=== PATIENT | female | born 1960 | race Caucasian/White ===

== ENCOUNTER 2023-12-08 15:21 | Inpatient (IN) | payer MEDICARE, SELFPAY ==
[2023-12-08] VITALS (10 sets, daily range): BP systolic 105–167; BP diastolic 71–105; BMI 27.2
--- NOTE | 2023-12-08 15:48 | HPS.HSE ---
Family Physician
-
Family Physician: NO INTERVIEW UNKNOWN
Chief Complaint
-
-
History of Present Illness
62-year-old right hand dominant female transferred from [facility] to [facility] on 12/08/2023 for consideration of CABG surgery due to multivessel coronary disease. Patient initially presented to [place] emergency room
with complaints of midsternal chest discomfort with radiation to her back that occurred while sitting. Patient had associated nausea and diaphoresis. 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 These episodes have always resolved with rest. While in the emergency room, patient experienced 10 out of 10 midsternal chest pain and repeat ECG reported new T wave inversions inferiorly. Initial troponin was
negative and subsequently elevated to 82 and ng/L, consistent with NSTEMI. Patient was treated with IV heparin, nitroglycerin, and aspirin. A transthoracic echocardiogram reported an EF of 55% with no significant valvular pathology. There was
mild hypokinesis of the inferior septum, basal, and mid inferior boyle. Patient underwent left heart catheterization today which reported significant LAD disease. Patient currently pain-free on low-dose IV nitroglycerin infusion.
[facility] 12/08/23 (R radial by Dr. Alejandro Ritter):
Left main: Normal
Anterior descending colon 90% ostial LAD stenosis
Left circumflex: 30-40% proximal OM1. Distal left PDA patent
Right coronary artery: Small nondominant vessel with 50-60% mid stenosis
Medical History
Past Medical History
Past Medical History: Reports Cancer (Non-small cell lung cancer with left upper lobe (2008) and right lobe wedge resection (2016)), GERD, HTN, Psychiatric (anxiety) and Other (migraine; recovering alcoholic (last drink was 18 months ago))
Past Surgical History: Reports None and Other (KETURAH m& R wedge resection)
Social History
Tobacco: Former Smoker (Quit 2006)
Alcohol: Chronic Alcoholic (Sober x 18 months)
Drug: None
Personal:
Living: With Family
Employment: Employed (Works at [employer])
Family History
Family History: Not pertinent
Allergies / Home Medications
Allergies reflects when Allergies were last updated in [facility].
Home Medications with original date entered in [facility]
Allergy/Medication List:
Allergies
Allergy/AdvReac Type Severity Reaction Status Date / Time
acetaminophen [From Tylenol] Allergy hives Verified 12/08/23 15:45
hydromorphone [From Dilaudid] Allergy Hives Verified 12/08/23 15:45
Penicillins Allergy Unknown Verified 12/08/23 15:45
Patient recounts was told allergic to penicillin as a child. Reaction acetaminophen and Dilaudid both cause hives
Home Medications
�Medication �Instructions �Recorded
amlodipine 2.5 mg tablet 2.5 mg PO DAILY 12/08/23
fluoxetine 40 mg capsule (Prozac) 40 mg PO DAILY 12/08/23
pantoprazole 40 mg tablet,delayed 40 mg PO DAILY 12/08/23
release (Protonix)
zolpidem 6.25 mg tablet,extended 6.25 mg PO HS PRN insomnia 12/08/23
release,multiphase (Ambien CR)
Review of Systems
-
History Source: Patient
A 12 point ROS was completed and negative except as noted: Yes
Constitutional: Reports No Symptoms
EENT: Reports No Symptoms
Respiratory: Reports No Symptoms
Cardiac: Reports See HPI
Abdomen/GI: Reports Other (Reflux)
: Reports No Symptoms
Musculoskeletal: Reports No Symptoms
Skin: Reports No Symptoms
Neurological: Reports No Symptoms
Endocrine: Reports No Symptoms
Hematologic/Lymphatic: Reports No Symptoms
Psych: Reports Anxiety
Physical Exam
Physical Exam
General: Well Developed, Well Nourished, No Apparent Distress and Comfortable
HEENT: NormoCephalic, Anicteric, Moist mucous membranes, PERRLA, No Ptosis, Nose Appears Normal, Ears Appear Normal and Neck Nontender
Respiratory: Clear
Cardiac: S1/S2 and Regular Rhythm
Breast: Deferred by me
GI: Soft, Non Tender and Non Distended
Rectal: Deferred by Provider
Genito-urinary: Deferred by me
Musculoskeletal: No Clubbing, No Cyanosis and No Edema
Skin: Warm and Dry
Neuro: AO x 3, No Motor Deficits and Nonfocal/grossly intact
Hematologic/Lymphatic: No Lymphadenopathy
Psych: Calm and Intact Judgment/Insight
Laboratory Results
-
Labs from [facility] (12/07):
Creat 0.83
Na+ 139
K+ 3.8
Data Reviewed
-
Diagnostic Radiology: Report Reviewed by me and Discussed with Physician
CT Scan: Report Reviewed by me and Discussed with Physician
Ultrasound: Report Reviewed by me and Discussed with Physician
Lab Data: Labs Reviewed by me and Discussed with Physician
Old Records: Requested (from Dr. Tinajero ([facility]))
Impression/Plan
-
IMPRESSION:
NSTEMI/high-grade LAD coronary disease
PLAN:
-DR Ren reviewed imaging and spoke with patient/ regarding surgical procedure, risk/benefit ratio, and expected recovery trajectory
-consent signed
-medical release signed to obtain records from Dr. Tinajero 9[facility])
-Routine blood work, type and screen, carotid ultrasound, chest x-ray and noncontrast CT of the chest ordered
-Cardiology anesthesiology consulted
-Scheduled for CABG on 12/[address] Ren
--- NOTE | 2023-12-08 16:05 | PTCARENOTE ---
Pt arrived to CVICU from [place]. Pt currently chest pain free on Nitro gtt. Pt remains sinus stephan HR 50's-60's. BP 141/97 MAP 110. Pulse oximetry 99% on room air. Pt currently on bedrest. Purwick in place. Right radial band in place, pulses
palpable, neurovascular assessment WNL.
--- NOTE | 2023-12-08 16:24 | CM ---
Reviewed chart. Met with Ms. Brooks and her brother to review discharge plan. He states prior to admission she resides with her 29 year old daughter in a three story home with two steps to enter. She states she has a full flight of steps to get
to bedroom/full bathroom. She states she has a powder room on the first floor. She states prior to admission she was independent with ambulation and adls. She states she does not have any DME in the home. She states she recently signed up for
Medicare and did not sign up for her Medicare prescription plan yet. She states he daughter works outside the home. Medical work-up in progress. The discharge plan is to return home with her daughter and a home visit by the Cardiothoracic
Transitional Care Nurse when medically stable.
We reviewed pre-op and post-op routines. We briefly reviewed the shower instructions. We reviewed restrictions including sternal precautions and driving restrictions. Also discussed a home visit by the Cardiothoracic Transitional Care Nurse. She
is agreeable to a home visit. Gave her the Cardiothoracic Surgery Educational Booklet. The plan is for CABG on 12/09/23.
--- NOTE | 2023-12-08 16:43 | CON.CAR ---
Consultation
Consultation Request
Date/Time Consultation Requested: 12/08/23
Date/Time Consultation Performed: 12/08/23
Requesting Provider: Dr. Ren
Performing Provider: Dr. Palma
Reason for Consultation: Chest pain, CAD
Medical History
-
History of Present Illness:
Patient came to from [facility] today with ACS and CAD, cardiology has been consulted. 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
She had chest pain and left hand tingling that resolved with rest. She did not try to complete that walk again and overall she had never had an episode like that before. She had an episode of chest pain walking up the stairs today and was seen at
[facility] and admitted with ACS. Patient had cardiac cath 12/08/23 that showed ostial LAD disease. She had chest pain that improved with NTG SL and Heparin gtt. She was transferred to for CABG evaluation. She has been pain free since arrival to . Her
mother had an OR at age 76, but suspects she had MIs prior to that as well. She is one of four children and two of her brother have CAD, one had CABG in his 50s and the other had PCI a few weeks ago and is in his 60s. She used to smoke 1.5 ppd, but
quit in 2006. She also used to drink 3-5 drinks a day and quit cold turkey 17 months ago which she says caused her to gain weight and her cholesterol went up. She has a h/o HTN, but reports that her BP was elevated at PCP's office once or twice so
they started amlodipine. She does not monitor her BP at home.
PMH:
CAD with ostial LAD lesion by cath at [facility] 12/08/23
Transferred from [facility] to for CT surgery evaluation 12/08/23
HTN
h/o lung cancer
initially diagnosed as a left sided lung mass treated with resection at [facility] 2007
recurrent lung cancer, primary lesion and not thought to be a metastatic lesion, treated with resection at [facility] 2015
Former smoker
Former ETOH use disorder
Past Medical History
Past Medical History: Other (in HPI)
Past Surgical History: Other (lung cancer resection left sided 208, right sided 216)
Social History
Tobacco: Former Smoker (smoked 1.5 ppd, quit 2006)
Alcohol: Former (used to drink 3-5 a day and quit 17 months ago, detoxed on her own at home)
Drug: None
Living: Alone
Family History
Family History: CAD (mother OR at 76, one brother with CABG in his 50s and another brother with PCI earlier this month)
Allergies / Home Medications
Allergy/AdvReac Type Severity Reaction Status Date / Time
acetaminophen [From Tylenol] Allergy hives Verified 12/08/23 15:45
hydromorphone [From Dilaudid] Allergy Hives Verified 12/08/23 15:45
Penicillins Allergy Unknown Verified 12/08/23 15:45
Review of Systems
-
History Source: Patient
All other systems: Negative unless noted
Physical Exam
Vital Signs
Pulse Resp BP Pulse Ox
60 13 141/97 99
12/08/23 16:15 12/08/23 16:15 12/08/23 16:00 12/08/23 16:15
GEN: NAD. AAOx3
HEENT: EOMI, MMM
LUNGS: CTA B/L, no wheezes or rales
CV: Reg, S1/S2, no murmur
ABD: soft, BS+, NT, ND
EXT: No clubbing, cyanosis, lesions or edema B/L. +2 B/L PT pulses
NEURO: Gross non-focal
SKIN: Warm, dry and pink. No rash
Lab Results
Labs ordered and pending
Impression / Plan
-
PCP: unknown
Cardiology: cath by ATC at [facility]
Impression:
ACS
CAD with ostial LAD lesion by cath at [facility] 12/08/23
Transferred from [facility] to for CT surgery evaluation 12/08/23
HTN
h/o lung cancer
initially diagnosed as a left sided lung mass treated with resection at [facility] 2007
recurrent lung cancer, primary lesion and not thought to be a metastatic lesion, treated with resection at [facility] 2015
Former smoker
Former ETOH use disorder
Echo 12/08/23: Study pending
Plan:
-Patient came to from [facility] today with ACS and CAD, cardiology has been consulted. 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 She had chest pain and left hand tingling that resolved with rest. She did not try to complete that walk again and overall she had never had an episode like that before. She had an episode of chest pain walking up the stairs today and
was seen at [facility] and admitted with ACS. Patient had cardiac cath 12/08/23 that showed ostial LAD disease. She had chest pain that improved with NTG SL and Heparin gtt. She was transferred to for CABG evaluation. She has been pain free since arrival
to . Her mother had an OR at age 76, but suspects she had MIs prior to that as well. She is one of four children and two of her brother have CAD, one had CABG in his 50s and the other had PCI a few weeks ago and is in his 60s. She used to smoke
1.5 ppd, but quit in 2006. She also used to drink 3-5 drinks a day and quit cold turkey 17 months ago which she says caused her to gain weight and her cholesterol went up. She has a h/o HTN, but reports that her BP was elevated at PCP's office once
or twice so they started amlodipine. She does not monitor her BP at home.
-Labs pending
-ECG reviewed by me with sinus bradycardia and no ST changes.
-Echo pending
-CT surgery team is evaluating patient and plan is for CABG in AM. Talked with patient and her brother in the room. Patient is resistant to taking daily meds. She is going to start working on wrapping her head around taking aspirin, statin, BB etc.
-She has not had a drink of ETOH in 17 months. She quit smoking in 2006.
[2023-12-08 16:55] LABS: % Basophils 0.5 % (0-2); % Eosinophils 0.6 % (0-6); % Immature Granulocytes 0.3 % (0-0.5); % Lymphocytes 19.3 % (20.5-51.1); % Neutrophils 74.3 % (42.2-75.2); Absolute Basophils 0.1 10^3/uL (0-0.2); Absolute Eosinophils 0.1 10^3/uL (0-0.7); Absolute Lymphocytes 1.9 10^3/uL (1.2-3.4); Absolute Monocytes 0.5 10^3/uL (0.1-0.6); Absolute Neutrophils 7.2 10^3/uL (1.4-6.5); Hematocrit 39.2 % (37.0-47.0); Hemoglobin 13.2 g/dL (12.0-16.0); Mean Corp Hgb Conc. 33.7 g/dL (33.0-37.0); Mean Corpuscular Volume 83.2 fL (81.0-99.0); Mean Platelet Volume 8.8 fL (7.4-10.4); Nucleated Red Blood Cells % 0 %; Platelet Count 322 10^3/uL (130-400); Red Blood Cell Count 4.71 10^6/uL (4.20-5.40); White Blood Cell Count 9.7 10^3/uL (4.8-10.8)
[2023-12-08 17:05] LABS: INR 1.12; PT 14.3 Sec (11.4-14.6)
[2023-12-08 17:07] LABS: APTT 72.8 Sec (23.4-35.0)
[2023-12-08 17:13] LABS: Urine Albumin Negative (Neg - Trace); Urine Bilirubin Negative (Negative); Urine Character Clear (Clear); Urine Color Yellow; Urine Glucose Negative (Negative); Urine Ketone Trace (Negative); Urine Leukocyte Trace (Negative); Urine Nitrite Negative (Negative); Urine Occult Blood Negative (Negative); Urine Urobilinogen Negative (Neg - 1+)
[2023-12-08 17:19] LABS: ALT (SGPT) 16 U/L (0-35); AST (SGOT) 22 U/L (14-36); Albumin 3.5 g/dl (3.5-5.0); Alkaline Phosphatase 50 U/L (38-126); Blood Urea Nitrogen 14 mg/dl (7-17); Calcium 8.7 mg/dl (8.4-10.2); Carbon Dioxide 22 mmol/L (22-30); Chloride 110 mmol/L (98-107); Estimated Creatinine Clearance 85 ml/min; Glucose 104 mg/dl (70-99); Magnesium 1.7 mg/dl (1.6-2.3); Phosphorus 3.7 mg/dl (2.5-4.5); Potassium 4.2 mmol/L (3.5-5.1); Sodium 137 mmol/L (135-145); Total Bilirubin 0.8 mg/dl (0.2-1.3); eGFR > 60.00
[2023-12-08 17:33] LABS: Urine Bacteria Moderate (Negative); Urine Red Blood Cell 0-2 /HPF (0-2); Urine Squamous Cell >30 /LPF (Few)
--- NOTE | 2023-12-08 18:12 | W.PN.UPDATE ---
Update Note
Progress Note Update
pt seen and examined
cath reviewed in detail, discussed with Dr Ritter
comorbidity of significance is prior smoking with copd and lung ca
left thorocotomy and left upper lobe resection first
right wedge resection more recently
Cath with ostial lad and flow at risk
I agree cabg to lad with leroy or julio césar is good option
Risks, complications benefits and alternatives reviewed
Plan cabg in am
check ct scan for anatomy given prior thorocotomies x 2
--- NOTE | 2023-12-08 18:23 | RESPNOTE ---
i attempted bedside spirometry at 1630, patient had to go to ultrasound emergently , i attempted to do the spirometry again at 1814 when patient returned from ultrasound , the patient was having severe chest pain at the time and could not perform
spirometry, i notified jolly reynolds nurse practitioner and told her the situation, she said we could attempt again on rubber goods tester water if she is able to do it
[2023-12-08] MEDS: LIPITOR 80 MG PO (18:36)
--- NOTE | 2023-12-08 18:45 | PTCARENOTE ---
Preop testing completed. Back to room, pt with increased chest pain. Nitro titrated up to 10mcg/min. Pt now chest pain free. Right radial band weaning off. Pulses palpable.
[2023-12-08] MEDS: HEPARIN 25000 UNITS/250 ML IV (20:18)
--- NOTE | 2023-12-08 20:45 | PTCARENOTE ---
Received patient from ron GALAVIZ. Walking rounds completed. Pt AAOx3. Pt SR on the tele monitor. HR 60s. BP 118/78. Palpable pulses throughout. No edema. Pt on RA. POX 92-96%. Lung sounds clear. Deep breathing encouraged. Abdomen soft/nontender.
+BS. Pt instructed to ring if she needs to void. Right radial cath site clean/dry/intact and QUALITY CONTROL ASSISTANT. TR band removed. Left PIVx2 CDI. Nitro and heparin infusing as ordered. Pt states she is currently CP free. Pt updated on plan of care for the night.
Questions encouraged and answered. Call garza within reach.
[2023-12-09] VITALS (23 sets, daily range): BP systolic 106–140; BP diastolic 55–79; BMI 27.2
--- NOTE | 2023-12-09 00:06 | PTCARENOTE ---
Previous assessment unchanged. Pt clipped and washed with CHG soap / Linens and gown changed ~2100. Pt SR to sinus stephan on the tele monitor. HR 50-60s. BP stable. Pt on 2 L NC. POX 96%. Right radial cath site intact and LEIGHA. Nitro and heparin
infusing. No c/o CP. Call garza within reach.
[2023-12-09 03:02] LABS: APTT 55.4 Sec (23.4-35.0)
--- NOTE | 2023-12-09 05:32 | PTCARENOTE ---
No acute changes in assessment. Pt SR to sinus stephan on the monitor. HR 50-60s. Pt currently CP free with nitro infusing as ordered. Pt on RA. POX 95%. Pt given second CHG soap bath. VS and weight obtained. EKG completed. Heparin infusing per
protocol. Call garza within reach.
[2023-12-09] MEDS: PROTONIX 40 MG PO (06:06)
[2023-12-09] MEDS: MAGNESIUM OXIDE 500 MG PO (06:06)
[2023-12-09] MEDS: BACTROBAN 2% OINTMENT 1 APPLIC NASAL ×2 (06:06→20:15)
[2023-12-09] MEDS: LOPRESSOR 12.5 MG PO (06:06)
--- NOTE | 2023-12-09 06:34 | W.CVOR.SURPR ---
CVOR Surgeon Immed Pre Op
-
I have examined this patient prior to performance of the scheduled procedure.
The patient's condition is unchanged from the time of the dictated/written History and
Physical and the patient is able to undergo the scheduled procedure.
[2023-12-09 07:33] LABS: ACT+ - POC 90 Seconds (82-134)
[2023-12-09 07:42] LABS: Urine Albumin Negative (Neg - Trace); Urine Bilirubin Negative (Negative); Urine Character Clear (Clear); Urine Color Yellow; Urine Glucose Negative (Negative); Urine Ketone Negative (Negative); Urine Leukocyte Negative (Negative); Urine Nitrite Negative (Negative); Urine Occult Blood Negative (Negative); Urine Urobilinogen Negative (Neg - 1+)
--- NOTE | 2023-12-09 08:14 | CM ---
Reviewed chart. Ms. Brooks is in the operating room today. Prior to admission she resides with her daughter in a two story home with two steps to enter. She has a full flight of steps to get to bedroom/full bathroom. She has a powder room on the
first floor. Prior to admission she was independent with ambulation and adls. She does not have any DME in the home. Medical work-up in progress. The discharge plan is to return home with her daughter and a home visit by the Cardiothoracic
Transitional Care Nurse when medically stable.
[2023-12-09 08:22] LABS: B.E. - POC -3.1 mmol/L; Glucose - POC 119 mg/dl (65-99); HCO3 - POC 21 mmol/L (21-29); Hematocrit - POC 37 % PCV (37-47); Hemodilution- POC No; Hemoglobin Calculated - POC 12.6; Ionized Calcium - POC 1.18 mmol/L (1.12-1.27); O2 Saturation %Calculated-POC 98.7 5 (92-96); PCO2 - POC 35 mmHg (35-45); PO2 - POC 121 mmHg (80-100); POC Comment BASELINE; Potassium - POC 3.4 mmol/L (3.6-5.0); Sodium - POC 142 mmol/L (135-145); pH - POC 7.39 (7.35-7.45)
[2023-12-09 08:35] LABS: ACT+ - POC 735 Seconds (82-134)
[2023-12-09 09:02] LABS: B.E. - POC -3.3 mmol/L; Glucose - POC 144 mg/dl (65-99); HCO3 - POC 23 mmol/L (21-29); Hematocrit - POC 38 % PCV (37-47); Hemodilution- POC No; Ionized Calcium - POC 1.16 mmol/L (1.12-1.27); O2 Saturation %Calculated-POC 95.1 5 (92-96); PCO2 - POC 42 mmHg (35-45); PO2 - POC 81 mmHg (80-100); Potassium - POC 3.4 mmol/L (3.6-5.0); Sodium - POC 140 mmol/L (135-145); pH - POC 7.33 (7.35-7.45)
[2023-12-09 09:04] LABS: ACT+ - POC 96 Seconds (82-134)
[2023-12-09 09:21] LABS: B.E. - POC -4.3 mmol/L; Glucose - POC 133 mg/dl (65-99); HCO3 - POC 20 mmol/L (21-29); Hematocrit - POC 34 % PCV (37-47); Hemodilution- POC No; Hemoglobin Calculated - POC 11.5; O2 Saturation %Calculated-POC 93.4 5 (92-96); PCO2 - POC 35 mmHg (35-45); PO2 - POC 70 mmHg (80-100); POC Comment POST; Potassium - POC 3.3 mmol/L (3.6-5.0); Sodium - POC 140 mmol/L (135-145); pH - POC 7.37 (7.35-7.45)
--- NOTE | 2023-12-09 09:38 | W.PN.CT.SURG ---
CT Surgery Operative Note
-
Pre-op Diagnosis: nstemi
critical lad cad
Post-op Diagnosis: Same
Procedure: Cabg x 1
Rizzo- lad
off pump
RSF
Primary Surgeon: Mikal
Assisting Surgeons: Aurelia
Specimen: None
Cultures: None
Complications / Blood Loss: None
Findings: Walt with preserved EF pre and post revasc
Good Rizzo
Good target
COPD
[2023-12-09 10:02] LABS: Glucose - Point of Care 145 mg/dl (70-99)
[2023-12-09 10:15] LABS: B.E. -3.8 mmol/L; HCO3 22.2 mmol/L (21-28); Ionized Calcium 1.07 mMOL/L (1.15-1.33); O2 Saturation % 98.4 % (94-98); PCO2 43 mmHg (32-35); PO2 86 mmHg (83-108); Potassium 3.7 mMOL/L (3.5-5.1); Sodium 135 mMOL/L (136-145); pH 7.32 (7.35-7.45)
--- NOTE | 2023-12-09 10:15 | PTCARENOTE ---
Pt received from CVOR at 0950; Sedated and intubated; NSR rhythm on monitor and VSS; Lungs diminished at bases; ETT size 8 and 22 at lip; Ventilator settings SIMV 500/12/5/5 FiO2 60%; CTx2 to -20 cm wall suction, no air leak, tidaling, or crepitus
noted; Hypoactive BS; Talbert catheter in place draining yellow urine; Surgical sites CDI; Palpable pulses throughout; no edema noted; Left A-line, RIJ Cordis/SLIC, and PIV X2 all lines zeroed and level; Levo, Precedex, and Insulin infusing see flow
sheet for details; See nursing documentation for further details.
[2023-12-09 10:30] LABS: Blood Urea Nitrogen 10 mg/dl (7-17); Estimated Creatinine Clearance 85 ml/min; Glucose 153 mg/dl (70-99); Magnesium 1.7 mg/dl (1.6-2.3)
[2023-12-09 10:34] LABS: INR 1.26; PT 15.6 Sec (11.4-14.6)
[2023-12-09 10:34] LABS: Hemoglobin 12.7 g/dL (12.0-16.0); Platelet Count 354 10^3/uL (130-400)
[2023-12-09] MEDS: NSS 500 IV ×2 (10:37→11:22)
[2023-12-09] MEDS: ANCEF 10 IV ×2 (10:38)
[2023-12-09] MEDS: CALCIUM CHLORIDE 10% SYRINGE 50 ML IV (10:39)
[2023-12-09] MEDS: CALCIUM CHLORIDE 10% SYRINGE 50 MG IV (10:39)
--- NOTE | 2023-12-09 10:50 | CON.INTV ---
Consultation
Consultation Request
Date/Time Consultation Requested: 12/09/2023 - 910
Date/Time Consultation Performed: 12/09/2023 - 1034
Requesting Provider: JOHN Dorsey
Performing Provider: Neo Fortune MD
Reason for Consultation: s/p CABG
Medical History
-
Chief Complaint: Chest pain
History of Present Illness:
62 female former tobacco smoker with a past medical history of NSCLC s/p KETURAH resection (2007) c/b recurrence with RLL wedge resection at [place], GERD, hypertension, alcoholism and history of migraines who presented on 12/08/2023 for CABG
evaluation catheter first presenting with SS�CP at [facility]. Over the last month patient been having worsening exertional chest pain. Symptoms resolved with rest. Patient went to [facility] ER due to 10 out of 10 substernal chest pain with T
wave inversions seen in the inferior leads on EKG. Troponins were initially negative and then daniel to 82. Patient was started on IV heparin for an NSTEMI and also given aspirin + nitroglycerin. Reportedly, transthoracic echo showed an EF of 55%
with no significant valvular pathology. There was mild hypokinesis in the inferior septum, basal and mid inferior boyle. Left heart catheterization showed significant LAD disease and she was transferred here to [facility] for evaluation for
CABG. Spirometry performed today for preop purposes showed a moderate obstructive lung defect with FEV1 1.71 L / 78% predicted. Today patient underwent CABG x 1, with no complications and transferred to the CVICU with left pleural chest
tube/mediastinal chest tube in place. Critical care services consulted for additional management/recommendations.
When I saw the patient she was already extubated, saturating 93% on 6 L/min nasal cannula. BP via left radial A-line was 124/65 (BP via NIBP 106/61), heart rate 56. She was on nitroglycerin drip at 5mcg/min and insulin drip at 2.3 units/hr.
patient has postoperative chest pain, but denies shortness of breath, headache, abdominal pain, fevers or chills. Daughters x 2 at bedside. I answered all of the patient's and the daughters' questions.
PMHx: Lung cancer s/p left upper lobe resection (2008)/RLL wedge resection (2016), GERD, hypertension, anxiety, history of migraines, alcoholism, former tobacco use disorder
PSHx: Lung resection of left upper lobe + right lower lobe
Past Medical History
Past Medical History: Other (Above as per HPI)
Past Surgical History: Other (Above as per HPI)
Social History
Tobacco: Former Smoker (Quit 2006, smoked 1.5PPD prior to that)
Alcohol: Chronic Alcoholic (Sober X 18 months)
Drug: None
Personal:
Living: With Family
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
Family History
Family History: CAD (2 brothers: 1 had a CABG in his 50s and the other at [facility] few weeks ago in his 60s; Mother: hx of [place])
Allergies / Home Medications
Allergies
Allergy/AdvReac Type Severity Reaction Status Date / Time
acetaminophen [From Tylenol] Allergy Anaphylaxis Verified 12/08/23 18:30
hydromorphone [From Dilaudid] Allergy Hives Verified 12/08/23 15:45
Penicillins Allergy Unknown Verified 12/08/23 15:45
Home Medications
�Medication �Instructions �Recorded �Confirmed �Last Taken �Type
amlodipine 2.5 mg tablet 2.5 mg PO DAILY Blood Pressure 12/08/23 12/08/23 12/07/23 08:00 History
fluoxetine 40 mg capsule (Prozac) 40 mg PO DAILY Mental 12/08/23 12/08/23 12/07/23 08:00 History
Health/Anxiety
pantoprazole 40 mg tablet,delayed 40 mg PO DAILY GERD 12/08/23 12/08/23 12/07/23 08:00 History
release (Protonix)
zolpidem 6.25 mg tablet,extended 6.25 mg PO HS PRN insomnia 12/08/23 12/08/23 Unknown History
release,multiphase (Ambien CR)
Review of Systems
-
History Source: Patient
All other systems: Negative unless noted
Vitals / Labs / Diagnostic Testing
Vital Signs
Temp Pulse Resp BP Pulse Ox
97.6 F 65 16 131/79 95
12/09/23 12:00 12/09/23 13:24 12/09/23 13:24 12/09/23 13:00 12/09/23 13:24
Laboratory Results
12/08/23 12/08/23 12/09/23
16:45 17:44 02:41
PT 14.3
INR 1.12
APTT 72.8 H Cancelled 55.4 H
pH
pCO2
pO2
HCO3
O2 Delivery Level
12/09/23 12/09/23 12/09/23
09:51 09:52 11:30
PT 15.6 H
INR 1.26
APTT
pH 7.32 L Cancelled
pCO2 43 H Cancelled
pO2 86 Cancelled
HCO3 22.2 Cancelled
O2 Delivery Level Cancelled
12/09/23
12:39
PT
INR
APTT
pH 7.32 L
pCO2 40 H
pO2 88
HCO3 20.6 L
O2 Delivery Level
Microbiology
12/08/23 16:58 Urine Urine Culture - Final
Diagnostic Testing:
Physical Exam
-
HEENT: Normocephalic and Anicteric
Cardiovascular: S1/S2 and Peripheral Edema (Negative)
Respiratory: Wheeze (Negative), Rales (Bilateral), Rhonchi (Negative) and Non-Labored Respirations
GI: Soft, Non Distended, Non Tender and Normal Bowel Sounds
Neurology: Awake and Alert
Skin: Warm, Dry and Other (left radial arterial catheter)
General: Comfortable, Chills (Negative) and Sweats (Negative)
Assessment
-
Assessment: 62 female former tobacco smoker with a past medical history of NSCLC s/p KETURAH resection (2007) c/b recurrence with RLL wedge resection at [place], GERD, hypertension, alcoholism and history of migraines who presented on 12/08/2023 for
CABG evaluation catheter first presenting with SS�CP at [facility]. Over the last month patient been having worsening exertional chest pain. Symptoms resolved with rest. Patient went to [facility] ER due to 10 out of 10 substernal chest pain
with T wave inversions seen in the inferior leads on EKG. Troponins were initially negative and then daniel to 82. Patient was started on IV heparin for an NSTEMI and also given aspirin + nitroglycerin. Reportedly, transthoracic echo showed an EF
of 55% with no significant valvular pathology. There was mild hypokinesis in the inferior septum, basal and mid inferior boyle. Left heart catheterization showed significant LAD disease and she was transferred here to [facility] for
evaluation for CABG. Spirometry performed today for preop purposes showed a moderate obstructive lung defect with FEV1 1.71 L / 78% predicted. On 12/09/2023, the patient underwent CABG x 1, with no complications and was transferred to the CVICU
with left pleural chest tube/mediastinal chest tube in place. Critical care services consulted for additional management/recommendations.
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
Impression:
#NSTEMI with critical LAD coronary artery disease s/p CABG X1 (POD #0)
#Former tobacco use disorder with moderate obstructive lung defect (likely due to COPD)
#History of lung cancer with KETURAH resection (2007) c/b recurrence with RLL wedge resection (2016 � [place] [facility])
#Alcoholism
#Hx of GERD
#HTN
#Hx of anxiety
Plan:
Patient already extubated to nasal cannula and she is breathing comfortably on 6 L/min
Titrate O2 flow rate to maintain SpO2 >88-94%
Encourage incentive spirometer use
prn nebulized bronchodilators
Pulmonary artery catheter parameters will be followed
Pressors/antihypertensive/inotropes/diuretics will be provided as needed
Maintain MAP>65
Replete electrolytes with K>4, Mg>2
Monitor chest tube output
Monitor hemoglobin
Monitor platelet count and coags
Transfuse blood product if needed to maintain Hb >8g/dL and plt>50k (given post-operative status)
CT surgery managing chest tubes
Monitor blood sugar with goal BG 140-180mg/dL
Insulin drip per protocol
Aspiration precautions
DVT prophylaxis
Early nutrition
Early mobilization
Patient says that she needs a new crane rigger as her prior lung doctor at [facility] (Dr. Reinoso) is no longer available. I will arrange for outpatient follow-up with me in the office and records from her prior crane rigger will need to be
transferred to us for continuity of care.
Critical care statement: A total of 41 minutes of critical care time was provided for this patient today. This includes management of ventilator, spontaneous breathing trial, arterial blood gases, pressors, of unstable vital signs, evaluation of the
patient at bedside, reviewing the patient's pertinent medical records including radiographs, microbiology, laboratory evaluations, and discussion with primary team and critical care nursing.
Data:
Intraoperative JEET 12/09/2023:
Overall LVEF is approximately 60% with no RWMA.
Trace mitral regurgitation.
Mild aortic insufficiency.
Mild scattered atheroma seen in the distal aortic arch.
[facility] 12/08/23 (R radial by Dr. Alejandro Ritter @ [facility]):
Left main: Normal
Anterior descending colon 90% ostial LAD stenosis
Left circumflex: 30-40% proximal OM1. Distal left PDA patent
Right coronary artery: Small nondominant vessel with 50-60% mid stenosis
[2023-12-09] MEDS: ALBUMIN 5% 250 IV (10:56)
[2023-12-09 11:03] LABS: Glucose - Point of Care 146 mg/dl (70-99)
[2023-12-09 11:12] LABS: Glycohemoglobin (HgbA1c) 5.8 % (4.0-5.6)
[2023-12-09] MEDS: NEURONTIN PO ×2 (11:23→16:37)
[2023-12-09] MEDS: PROZAC PO (11:23)
--- NOTE | 2023-12-09 12:00 | PTCARENOTE ---
RT in room and pt placed on CPAP. ABG's due at 1230
[2023-12-09] MEDS: KCL 50 IV (12:06)
[2023-12-09] MEDS: TORADOL 15 MG IV ×2 (12:06→23:13)
[2023-12-09 12:19] LABS: Glucose - Point of Care 114 mg/dl (70-99)
[2023-12-09 12:54] LABS: B.E. -5.2 mmol/L; HCO3 20.6 mmol/L (21-28); PCO2 40 mmHg (32-35); PO2 88 mmHg (83-108); pH 7.32 (7.35-7.45)
[2023-12-09 13:11] LABS: Glucose - Point of Care 103 mg/dl (70-99)
--- NOTE | 2023-12-09 13:15 | PTCARENOTE ---
ABG's reviewed; RT at bedside; Pt extubated at 1315; Pt placed on 6L NC.
--- NOTE | 2023-12-09 13:22 | RESPNOTE ---
12/09/2023 13:15 Patient extubated to 5L nasal cannula. (+) breath sounds. (-) stridor. cuff leak present.
[2023-12-09 14:04] LABS: Hematocrit 38.4 % (37.0-47.0); Hemoglobin 12.9 g/dL (12.0-16.0); Ionized Calcium 1.25 mMOL/L (1.15-1.33); Platelet Count 306 10^3/uL (130-400)
[2023-12-09 14:10] LABS: Glucose - Point of Care 115 mg/dl (70-99)
[2023-12-09 14:17] LABS: Carbon Dioxide 24 mmol/L (22-30); Chloride 110 mmol/L (98-107); Potassium 4.3 mmol/L (3.5-5.1); Sodium 137 mmol/L (135-145)
[2023-12-09] MEDS: LOW STRENGTH ASPIRIN 81 MG PO (15:19)
[2023-12-09] MEDS: ANCEF 5 IV ×2 (15:26→22:13)
--- NOTE | 2023-12-09 15:34 | W.PN.CARDCBS ---
Today's Communication / Plan
-
PLAN:
-s/p CABG with ANGEL-LAD
-Hemodynamically stable. Will follow
-ECG post op with more significant anterior T-wave inversions.
-High intensity statin therapy
-Aspirin 81mg daily
-Clopidogrel 75 mg daily
-Will ask pharmacy if there are alternatives to Prozac that there is no [id number] interaction. Not sure if she has been tried on any other SSRI. However, for her dual antiplatelet is less essential than if we placed a cardiac stent where lower
antiplatelet levels may be an issue.
Impression / Plan
-
PCP: unknown
Cardiology: cath by ATC at [facility]
IMPRESSION:
-CAD with ostial LAD stenosis by cath at [facility] 12/08/23 : s/p CABG ANGEL-LAD
-Transferred from [facility] to for CT surgery evaluation 12/08/23
-HTN
-h/o lung cancer
initially diagnosed as a left sided lung mass treated with resection at [facility] 2007
recurrent lung cancer, primary lesion and not thought to be a metastatic lesion, treated with resection at [facility] 2015
-Former smoker
-Former ETOH use disorder
Echo 12/08/23: LV: Normal size and function with an estimated ejection fraction 55-60%. The basal and mid inferior septum and basal and mid inferior boyle are hypokinetic. Remaining wall segments are normal. RV: Normal, RA: Normal, MV: Trace MR,
AV: Mildly thickened and sclerotic. TV: No TR.
PLAN:
-s/p CABG with ANGEL-LAD
-Hemodynamically stable. Will follow
-ECG post op with more significant anterior T-wave inversions.
-High intensity statin therapy
-Aspirin 81mg daily
-Clopidogrel 75 mg daily
-Will ask pharmacy if there are alternatives to Prozac that there is no [id number] interaction. Not sure if she has been tried on any other SSRI. However, for her dual antiplatelet is less essential than if we placed a cardiac stent where lower
antiplatelet levels may be an issue.
Patient came to from [facility] today with ACS and CAD, cardiology has been consulted. 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
She had chest pain and left hand tingling that resolved with rest. She did not try to complete that walk again and overall she had never had an episode like that before. She had an episode of chest pain walking up the stairs today and was seen at
[facility] and admitted with ACS. Patient had cardiac cath 12/08/23 that showed ostial LAD disease. She had chest pain that improved with NTG SL and Heparin gtt. She was transferred to for CABG evaluation. She has been pain free since arrival to . Her
mother had an [place] at age 76, but suspects she had MIs prior to that as well. She is one of four children and two of her brother have CAD, one had CABG in his 50s and the other had PCI a few weeks ago and is in his 60s. She used to smoke 1.5 ppd, but
quit in 2006. She also used to drink 3-5 drinks a day and quit cold turkey 17 months ago which she says caused her to gain weight and her cholesterol went up. She has a h/o HTN, but reports that her BP was elevated at PCP's office once or twice so
they started amlodipine. She does not monitor her BP at home.
Progress Note - Finished Yarn Examiner
Subjective
Date of Service: December 09, 2023
Extubated and sitting up in bed c/o sternal incisional pain
Objective
Labs:
12/09/23 13:55
12/09/23 13:55
Labs
Hgb 12.9 g/dL (12.0-16.0) 12/09/23 13:55
Hct 38.4 % (37.0-47.0) 12/09/23 13:55
Plt Count 306 10^3/uL (130-400) 12/09/23 13:55
PT 15.6 Sec (11.4-14.6) H 12/09/23 09:51
INR 1.26 12/09/23 09:51
APTT 55.4 Sec (23.4-35.0) H 12/09/23 02:41
Sodium 137 mmol/L (135-145) 12/09/23 13:55
Potassium 4.3 mmol/L (3.5-5.1) 12/09/23 13:55
BUN 10 mg/dl (7-17) 12/09/23 09:51
Creatinine 0.6 mg/dL (0.6-1.0) 12/09/23 09:51
Glucose 153 mg/dl (70-99) H 12/09/23 09:51
Vital Signs and I&O:
Vital Signs
Temp Pulse Resp BP Pulse Ox
97.5 F 57 23 114/68 95
12/09/23 15:00 12/09/23 15:00 12/09/23 15:00 12/09/23 15:00 12/09/23 15:00
Vital Signs
Temp Pulse Resp BP Pulse Ox
97.5 F 57 23 114/68 95
12/09/23 15:00 12/09/23 15:00 12/09/23 15:00 12/09/23 15:00 12/09/23 15:00
Intake & Output
12/06/23 12/07/23 12/08/23 12/09/23
23:59 23:59 23:59 23:59
Intake Total 20.5 / 30.0 691.0 / 691.0
Output Total 250 / 250 465 / 465
Balance -229.5 / -220.0 226.0 / 226.0
Physical Exam
Physical Exam
GEN: Alert postoperatively. Seen lying in bed. No acute distress. Appears comfortable. Complaining of sternal pain.
HEENT: NC/AT, sclera are anicteric
LUNGS: Clear to bases bilaterally. No wheezing or rhonchi
CV: +Rub. Regular rate and rhythm. Normal S1/S2.
EXT: No CCE
NEURO: No focal neurologic deficits
[2023-12-09 16:08] LABS: Glucose - Point of Care 95 mg/dl (70-99)
[2023-12-09] MEDS: FLEXERIL 5 MG PO (16:37)
[2023-12-09] MEDS: LIPITOR PO (17:13)
[2023-12-09] MEDS: NSS IV ×2 (17:27→23:01)
[2023-12-09 18:03] LABS: Glucose - Point of Care 122 mg/dl (70-99)
--- NOTE | 2023-12-09 18:13 | PTCARENOTE ---
Pt's BP remains high 120's-150's/60's-80's with MAPs 80's-100's; nitro infusing see flow sheets for details; TRAILHEAD MAINTENANCE WORKER Mirta Lafleur aware - ordered to hold off on IV NSS at 80 ml/hr at this time d/t high BP's; PRN Flexeril given with good effect; pt resting
comfortably in bed.
[2023-12-09] MEDS: SENOKOT-S 1 TABLET PO (20:15)
[2023-12-09 20:16] LABS: Glucose - Point of Care 86 mg/dl (70-99)
[2023-12-09 20:36] LABS: B.E. -2.2 mmol/L; HCO3 22.4 mmol/L (21-28); Ionized Calcium 1.22 mMOL/L (1.15-1.33); O2 Saturation % 97.2 % (94-98); PCO2 37 mmHg (32-35); PO2 76 mmHg (83-108); pH 7.39 (7.35-7.45)
--- NOTE | 2023-12-09 21:00 | PTCARENOTE ---
Assumed care of pt from dayshift RN. Walking rounds completed. Pt AAOx3. SR on the monitor. HR 60s. BP 120-130s/60s. Nitro infusing per protocol to keep MAPs 70-90. CVP ~3-6. Palpable pulses throughout. No edema. Pt on 6 L NC. POX 93-96%. Deep
breathing and IS encouraged. Lung sounds diminished at the base. Mediastinal and L pleural CT to -20 suction, no airleak or tidaling noted at this time, and output WNL. Abdomen soft/nontender. Hypoactive BS. Temperature sensing Talbert catheter CDI
and draining yellow urine. Sternal incision approximated w/ surgical adhesive and MATERIAL WORKER. Left radial a-line and right IJ cordis w/ slick clean/dry/intact. All lines leveled, zeroed, and flushed. Glycemic protocol followed. ABG drawn and sent per
order. Pt repositioned in bed. Call garza within reach.
[2023-12-09 22:09] LABS: Glucose - Point of Care 73 mg/dl (70-99)
[2023-12-09] MEDS: NEURONTIN 100 MG PO (22:13)
[2023-12-09 23:12] LABS: Glucose - Point of Care 89 mg/dl (70-99)
[2023-12-10] VITALS (27 sets, daily range): BP systolic 81–125; BP diastolic 49–75; PULSE 68; O2SAT 94–95; BMI 27.9
[2023-12-10 00:11] LABS: Glucose - Point of Care 100 mg/dl (70-99)
--- NOTE | 2023-12-10 00:19 | PTCARENOTE ---
No acute changes in assessment. Pt SR on the monitor. HR 60s. BP 110's-120's/60s. Nitro infusing per protocol. Pt maintained on 6 L NC. POX 96%. CT assessment unchanged from previous. Left radial a-line and CVP intact - all lines leveled, zeroed,
and flushed. All surgical sites stable. Talbert catheter intact and draining yellow urine. Pt repositioned in bed. See MAR for pain medication administration. Glycemic protocol followed. Call garza within reach.
[2023-12-10 01:00] LABS: Glucose - Point of Care 105 mg/dl (70-99)
--- NOTE | 2023-12-10 02:04 | W.PN.CT ---
Today's Communication / Plan
-
-pod #1
-no issues overnight
-drips: insulin only
-CT output: med and L pleural 50/230 in 12/24 hrs
-abnormal ECG - ? pericarditis/+rub
-deline
-d/c Talbert
-d/c insulin
-med allergy (anaphylaxis with Tylenol, hives with Dilaudid, 'didn't like the way she felt' on Ultram in the past). Pt has been taking Gabapentin at home since January 2023 and tolerated it.
-prn Toradol, Gabapentin, Flexeril for pain
-monitor Qt with Prozac
-encourage IS, OOB
Assessment / Plan
-
- NSTEMI/90% ostial LAD - s/p off pump CABG x1 (Rizzo-Lad) by Dr. Ren on 12/09/23, pod #1
- Intraop Walt with preserved EF pre and post revasc
- HTN/HLD
- Lung CA - s/p KETURAH (2007) and RUL (2016) lobectomy with chemo, no XRT
- Former tobacco, quit 2006
- Prior EtOH use, in recovery
- Anxiety
- Migraines
- Acute postop blood loss anemia - stable, no transfusion
- Acute postop atelectasis
- Acute postop hypovolemia
- Suspected acute postop pericarditis/+rub
Discussed patient care with: Nursing and Care Team
Subjective
Procedure
- s/p off pump CABG x1 (Rizzo-Lad) by Dr. Ren on 12/09/23
-
Date of Service: December 10, 2023
Objective Data
-
PT 15.6 Sec (11.4-14.6) H 12/09/23 09:51
INR 1.26 12/09/23 09:51
APTT 55.4 Sec (23.4-35.0) H 12/09/23 02:41
Vital Signs
Vital Signs
Temp Pulse Resp BP Pulse Ox
99.2 F 66 21 107/63 95
12/10/23 01:00 12/10/23 01:00 12/10/23 01:00 12/10/23 01:00 12/10/23 01:00
CT Intake/Output/Weight
12/09/23 12/09/23 12/10/23
06:59 18:59 06:59
Intake Total 81.5 / 81.5 697.3 / 847.4 150.1 / 847.4
Output Total 660 / 940 280 / 940
Balance 81.5 / -168.5 37.3 / -92.6 -129.9 / -92.6
SaO2: 95
Physical Exam
-
General: Awake and AOx3
Cardiovascular: Regular rate & rhythm, No Murmurs and Rub
Respiratory: Decreased Breath Sounds
Sternum: Stable
Incision: Clean, Dry and Intact
Extremities: No Edema (2+DP b/l)
Data Reviewed
-
Lab Results: Results Reviewed
Medications: Active Meds Reviewed
Chest X-Ray: Report Reviewed and Image Reviewed
ECG: Report Reviewed and Image Reviewed
[2023-12-10 02:12] LABS: Glucose - Point of Care 90 mg/dl (70-99)
[2023-12-10 03:16] LABS: Hematocrit 33.1 % (37.0-47.0); Hemoglobin 11.5 g/dL (12.0-16.0); Mean Corp Hgb Conc. 34.7 g/dL (33.0-37.0); Mean Corpuscular Hgb 28.6 pg (27.0-31.0); Mean Corpuscular Volume 82.3 fL (81.0-99.0); Platelet Count 282 10^3/uL (130-400); Red Blood Cell Count 4.02 10^6/uL (4.20-5.40); Red Cell Dist. Width 14.1 % (11.5-14.5); White Blood Cell Count 12.9 10^3/uL (4.8-10.8)
[2023-12-10] MEDS: FLEXERIL 5 MG PO ×2 (03:17→10:59)
[2023-12-10 03:37] LABS: Blood Urea Nitrogen 11 mg/dl (7-17); Calcium 8.7 mg/dl (8.4-10.2); Carbon Dioxide 22 mmol/L (22-30); Chloride 110 mmol/L (98-107); Estimated Creatinine Clearance 84 ml/min; Glucose 92 mg/dl (70-99); Magnesium 1.8 mg/dl (1.6-2.3); Potassium 4.2 mmol/L (3.5-5.1); Sodium 135 mmol/L (135-145); eGFR > 60.00
[2023-12-10 04:19] LABS: Glucose - Point of Care 96 mg/dl (70-99)
--- NOTE | 2023-12-10 04:45 | PTCARENOTE ---
No acute changes in assessment. Pt SR on the monitor. HR 60-70s. BP stable. Pt on 4 L NC. POX 95%. CT assessment unchanged from original. CT dressing changed. Pt left radial arterial line and slick dc'd. Talbert will remain in place until 0600.
Glycemic protocol followed. EKG obtained. Call garza within reach.
[2023-12-10] MEDS: NSS IV ×2 (05:45→07:54)
[2023-12-10] MEDS: TORADOL 15 MG IV ×2 (05:59→13:39)
[2023-12-10 06:09] LABS: Glucose - Point of Care 89 mg/dl (70-99)
[2023-12-10] MEDS: ANCEF 5 IV (07:08)
--- NOTE | 2023-12-10 07:24 | W.PN.ANS.POP ---
Anesthesia Post Operative
- Anesthesia Post Op Note
Vital Signs Stable-See Nursing Note: Yes
Airway Patent: Yes
Adequate Pain Control: Yes
Change in Mental Status: No
Current Postoperative Nausea & Vomiting: No
Anesthesia Complications: No
General Anesthetic Recall: No
Unplanned Admission: No
Post Op Hydration Adequate: Yes
[2023-12-10 07:47] LABS: Glucose - Point of Care 107 mg/dl (70-99)
[2023-12-10] MEDS: LIDOCAINE 4% PATCH 1 PATCH TOPICAL (07:50)
[2023-12-10] MEDS: BACTROBAN 2% OINTMENT 1 APPLIC NASAL ×2 (07:50→20:09)
[2023-12-10] MEDS: LOPRESSOR 12.5 MG PO ×2 (07:51→21:20)
[2023-12-10] MEDS: LOW STRENGTH ASPIRIN 81 MG PO (07:52)
[2023-12-10] MEDS: PROTONIX 40 MG PO (07:52)
[2023-12-10] MEDS: MAGNESIUM OXIDE 500 MG PO ×2 (07:53→20:08)
[2023-12-10] MEDS: PLAVIX 75 MG PO (07:53)
[2023-12-10] MEDS: PROZAC 40 MG PO (07:53)
[2023-12-10] MEDS: NEURONTIN 100 MG PO ×3 (07:53→21:20)
[2023-12-10] MEDS: SENOKOT-S 1 TABLET PO ×2 (07:53→20:08)
--- NOTE | 2023-12-10 08:17 | PTCARENOTE ---
Received pt from nightshift RN; Pt AAOx4, SR on the monitor. HR 70's, audible rub, BP 90/60's, pulses palpable, no edema; 4L O2@ 94%, bilaterally diminished in bases, I/S encouraged, mediastinal and L pleural CT to -20 suction, no airleak or
tidaling noted at this time, and output WNL. Talbert removed on nights, due to void by 12; abdomen soft/nontender with hypoactive BS; sternal incision C/D/I, Cordis KVO @10ml/hr, 2 L peripherals noted. Pt rates pain @ 3. Call garza within reach.
--- NOTE | 2023-12-10 09:02 | W.PN.INTV ---
Today's Communication / Plan
Recommendations
Up OOB as tolerated
Pain control
Cardiac rehab
DAPT with aspirin + Plavix
Encourage incentive spirometer use
Repeat CXR in 1-2 days to reassess LLL opacification; if persists, consider chest ultrasound versus CT chest
If patient spikes fever then start broad-spectrum antibiotics after lee-culture
Patient has been weaned off the insulin drip, and is now CVICU�telemetry status. Farm Equipment Operator/Pulmonary service will now sign off. Please reconsult if there are any additional questions/concerns, or if patient's respiratory status deteriorates.
Assessment
-
Assessment: 62 female former tobacco smoker with a past medical history of NSCLC s/p KETURAH resection (2007) c/b recurrence with RLL wedge resection at [place], GERD, hypertension, alcoholism and history of migraines who presented on 12/08/2023 for
CABG evaluation catheter first presenting with SS�CP at [facility]. Over the last month patient been having worsening exertional chest pain. Symptoms resolved with rest. Patient went to [facility] ER due to 10 out of 10 substernal chest pain
with T wave inversions seen in the inferior leads on EKG. Troponins were initially negative and then daniel to 82. Patient was started on IV heparin for an NSTEMI and also given aspirin + nitroglycerin. Reportedly, transthoracic echo showed an EF
of 55% with no significant valvular pathology. There was mild hypokinesis in the inferior septum, basal and mid inferior boyle. Left heart catheterization showed significant LAD disease and she was transferred here to [facility] for
evaluation for CABG. Spirometry performed today for preop purposes showed a moderate obstructive lung defect with FEV1 1.71 L / 78% predicted. On 12/09/2023, the patient underwent CABG x 1, with no complications and was transferred to the CVICU
with left pleural chest tube/mediastinal chest tube in place. Critical care services consulted for additional management/recommendations.
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
Impression:
#NSTEMI with critical LAD coronary artery disease s/p CABG X1 (POD #1)
#Abnormal CXR with retrocardiac opacity, DDx includes atelectasis vs effusion vs pneumonia - in this s/p CT surgical period, I suspect it is atelectasis and effusion
#Former tobacco use disorder with moderate obstructive lung defect (likely due to COPD)
#Centrilobular emphysema
#History of lung cancer with KETURAH resection (2007) c/b recurrence with RLL wedge resection (2016 � [facility]) - CT chest shows evidence, however, of bilateral upper lobe lobectomies
#Alcoholism
#Hx of GERD
#HTN
#Hx of anxiety
Plan:
Patient is breathing comfortably on 2 L/min from 6L/min yesterday
Titrate O2 flow rate to maintain SpO2 >88-94%
Encourage incentive spirometer use
prn nebulized bronchodilators
Encourage incentive spirometer 10x per hour for at least 4 hrs a day
Repeat CXR in 1-2 days to re-assess LLL --> if pt spikes a fever then start broad spectrum Abx with lee-Cx
If repeat CXR shows persistent LLL opacification, consider repeat CT chest vs chest ultrasound to verify etiology of pulmonary process
Patient has been weaned off of nitroglycerin drip and she is hemodynamically stable.
Maintain MAP>65
Replete electrolytes with K>4, Mg>2
Monitor chest tube output (left pleural chest tube x 1)
Monitor hemoglobin
Monitor platelet count and coags
Transfuse blood product if needed to maintain Hb >8g/dL and plt>50k (given post-operative status)
CT surgery managing chest tube
Monitor blood sugar with goal BG 140-180mg/dL
Insulin SQ supplementation as needed to maintain BG goal as above
Aspiration precautions
DVT prophylaxis
Early nutrition
Early mobilization
Patient says that she needs a new public message service supervisor as her prior lung doctor at [facility] (Dr. Reinoso) is no longer available. I will arrange for outpatient follow-up with me in the office and records from her prior public message service supervisor will need to be
transferred to us for continuity of care.
Patient has been weaned off the insulin drip, and is now CVICU�telemetry status. Farm Equipment Operator/Pulmonary service will now sign off. Thank you for allowing us to be involved in the care of this patient. Please reconsult if there are any additional
questions/concerns, or if patient's respiratory status deteriorates.
Total time spent today was 55 minutes for this encounter. Time includes reviewing laboratory test/imaging results, reviewing pertinent medical records, obtaining and reviewing medical history, performing an appropriate exam, ordering medications,
tests and procedures. Time also includes documentation of this encounter, coordinating patient care and communicating with other healthcare professionals. Total time does not include separately billed tests performed on this date of service.
Data:
CXR 12/10/2023: New findings in left lower lobe concerning for developing pneumonia; Moderate elevation of the right hemidiaphragm. Stable
Intraoperative JEET 12/09/2023:
Overall LVEF is approximately 60% with no RWMA.
Trace mitral regurgitation.
Mild aortic insufficiency.
Mild scattered atheroma seen in the distal aortic arch.
LHC 12/08/23 (R radial by Dr. Alejandro Ritter @ [facility]):
Left main: Normal
Anterior descending colon 90% ostial LAD stenosis
Left circumflex: 30-40% proximal OM1. Distal left PDA patent
Right coronary artery: Small nondominant vessel with 50-60% mid stenosis
Subjective Dataa
Subjective Data
Date of Service:
Date of Service: December 10, 2023
Chief Complaint: Farm Equipment Operator Follow Up and Pulmonary Follow Up
Subjective:
Seen and evaluated today at bedside. Saturating 95% on 2 L/min. Patient's at bedside. Left pleural chest tube placed to bulb and mediastinal chest tube DC'd. Patient's HR: 73 with BP: 98/62. She has some shortness of breath, improved by
sitting forward. Slept well overnight with no issues. Currently denies headache, abdominal pain, nausea, fevers or chills.
Review of Systems
General: Other (Negative unless mentioned above)
Objective Data
Data Reviewed
Vital Signs / I&O / Oxygen:
Vital Signs
Temp Pulse Resp BP Pulse Ox
98.7 F 75 16 98/62 95
12/10/23 15:56 12/10/23 17:15 12/10/23 17:07 12/10/23 16:00 12/10/23 17:07
Intake and Output
12/09/23 12/10/23 12/11/23
06:59 06:59 06:59
Intake Total 81.5 / 81.5 930.2 / 940.5 1050.9 / 1050.9
Output Total 250 / 250 1160 / 1180 530 / 530
Balance -168.5 / -168.5 -229.8 / -239.5 520.9 / 520.9
SaO2 [CPAP] 95
SaO2 [SIMV] 95
SaO2 95
Nasal Cannula flow liters per 5
minute
Physical Exam
General: Respiratory Distress (Negative), Comfortable, Chills (Negative) and Sweats (Negative)
HEENT: Normocephalic and Anicteric
Cardiovascular: S1-S2, Rub and Peripheral Edema (Negative)
Respiratory: Wheeze (Negative), Crackles (Right base), Rhonchi (Negative), Non-Labored Respirations and Chest Tube (Left pleural chest tube to bulb)
GI: Soft, Non Distended, Non Tender and Normal Bowel Sounds
Neurology: AO x 3 and Tremors (Negative)
Skin: Warm, Dry and Jaundice (Negative)
Labs/Micro/Reports
Lab Data
12/10/23 03:08
12/10/23 03:08
Laboratory Results
12/09/23
20:28
pH 7.39
pCO2 37 H
pO2 76 L
HCO3 22.4
O2 Delivery Level
Microbiology
12/08/23 16:58 Urine Urine Culture - Final
--- NOTE | 2023-12-10 10:25 | PTCARENOTE ---
Insulin drip d/c'ed per order; L pleural chest tube to bulb, Medial sternal chest tube d/c'ed, pt tolerated removal; pt in bed resting, call garza within reach.
--- NOTE | 2023-12-10 10:32 | PTCARENOTE ---
Insulin drip d/c'ed per order; L pleural chest tube to bulb, Mediastinal chest tube d/c'ed, pt tolerated removal; pt in bed resting, call garza within reach.
--- NOTE | 2023-12-10 10:55 | PTCARENOTE ---
pt able to void 25 ml in commode, due to void at 1200. Bladder scanned to check residual; 47 ml obtained.
--- NOTE | 2023-12-10 13:49 | PTCARENOTE ---
Pt expressed hesitance to taking post operative medication at home, re-enforced importance of taking post operative meds when d/c'ed to home.
--- NOTE | 2023-12-10 15:13 | W.PN.CARDCBS ---
Addendum entered and electronically signed by Kenji Guzman MD 12/10/23 16:00:
I saw and examined the patient.
The Demolition Worker's note was reviewed and I agree with the note.
Comment:
GEN: No distress, awake, Ox3
HEENT: supple, anicteric, mmm
LUNGS: CTA, no wheezes/rales
CV: Reg, S1/S2, no murmur
ABD: soft, BS+, NT/ND
EXT: No edema
NEURO: Gross non-focal
SKIN: sternotomy
Plan:
Overall doing well status post CABG. EKG with some mild pericarditis but minimal chest pain.
Creatinine normal and hemoglobin 11.5.
Continue aspirin, metoprolol, Plavix, and atorvastatin.
Remains in sinus rhythm.
Original Note:
Today's Communication / Plan
-
Toradol is controlling her pain
Impression / Plan
-
PCP: unknown
Cardiology: cath by ATC at [facility]
IMPRESSION:
-CAD with ostial LAD stenosis by cath at [facility] 12/08/23 : s/p CABG ANGEL-LAD
-Transferred from [facility] to for CT surgery evaluation 12/08/23
-HTN
-h/o lung cancer
initially diagnosed as a left sided lung mass treated with resection at [facility] 2007
recurrent lung cancer, primary lesion and not thought to be a metastatic lesion, treated with resection at [facility] 2015
-Former smoker
-Former ETOH use disorder
Echo 12/08/23: LV: Normal size and function with an estimated ejection fraction 55-60%. The basal and mid inferior septum and basal and mid inferior boyle are hypokinetic. Remaining wall segments are normal. RV: Normal, RA: Normal, MV: Trace MR,
AV: Mildly thickened and sclerotic. TV: No TR.
PLAN:
-ECG stable 12/10/23 with ongoing anterior T wave changes and elevations concerning for possible pericarditis along with rub. Toradol ordered.
-No chest pain. Patient with previous allergies to acetaminophen and Dilaudid
-Check CVE. Atorvastatin 80 mg daily started this admission. Patient initially reluctant to take statin, but now willing.
-New to aspirin 81 mg daily. Also new to Plavix 75 mg daily, there is an interaction with her chronic Prozac. Patient has had allergies to other meds and prefers to stay on Prozac which works well for her. Cont Plavix 75 mg daily.
HPI: Patient came to from [facility] today with ACS and CAD, cardiology has been consulted. 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 She had chest pain and left hand tingling that resolved with rest. She did not try to complete that walk again and overall she had never had an episode like that before. She had an episode of chest pain walking up the stairs today and
was seen at [facility] and admitted with ACS. Patient had cardiac cath 12/08/23 that showed ostial LAD disease. She had chest pain that improved with NTG SL and Heparin gtt. She was transferred to for CABG evaluation. She has been pain free since arrival
to . Her mother had an AL at age 76, but suspects she had MIs prior to that as well. She is one of four children and two of her brother have CAD, one had CABG in his 50s and the other had PCI a few weeks ago and is in his 60s. She used to smoke
1.5 ppd, but quit in 2006. She also used to drink 3-5 drinks a day and quit cold turkey 17 months ago which she says caused her to gain weight and her cholesterol went up. She has a h/o HTN, but reports that her BP was elevated at PCP's office once
or twice so they started amlodipine. She does not monitor her BP at home.
Progress Note - Earring Maker
Subjective
Date of Service: December 10, 2023
No chest pain, it's [birth year] today
Objective
Labs:
12/10/23 03:08
12/10/23 03:08
Labs
Hgb 11.5 g/dL (12.0-16.0) L 12/10/23 03:08
Hct 33.1 % (37.0-47.0) L 12/10/23 03:08
Plt Count 282 10^3/uL (130-400) 12/10/23 03:08
PT 15.6 Sec (11.4-14.6) H 12/09/23 09:51
INR 1.26 12/09/23 09:51
APTT 55.4 Sec (23.4-35.0) H 12/09/23 02:41
Sodium 135 mmol/L (135-145) 12/10/23 03:08
Potassium 4.2 mmol/L (3.5-5.1) 12/10/23 03:08
BUN 11 mg/dl (7-17) 12/10/23 03:08
Creatinine 0.6 mg/dL (0.6-1.0) 12/10/23 03:08
Glucose 92 mg/dl (70-99) 12/10/23 03:08
Vital Signs and I&O:
Vital Signs
Temp Pulse Resp BP Pulse Ox
98.9 F 74 16 95/49 93
12/10/23 11:47 12/10/23 14:00 12/10/23 11:47 12/10/23 14:00 12/10/23 10:39
Vital Signs
Temp Pulse Resp BP Pulse Ox
98.9 F 74 16 95/49 93
12/10/23 11:47 12/10/23 14:00 12/10/23 11:47 12/10/23 14:00 12/10/23 10:39
Intake & Output
12/08/23 12/09/23 12/10/23 12/11/23
06:59 06:59 06:59 06:59
Intake Total 81.5 / 81.5 930.2 / 940.5 790.9 / 790.9
Output Total 250 / 250 1160 / 1180 360 / 360
Balance -168.5 / -168.5 -229.8 / -239.5 430.9 / 430.9
Physical Exam
Physical Exam
GEN: AAOx3
HEENT: MMM
LUNGS: No audible wheeze
CV: SR on tele, +rub
ABD: ND
EXT: No edema
NEURO: Gross non-focal
SKIN: No rash
--- NOTE | 2023-12-10 15:45 | PTCARENOTE ---
Pt resting in bed; BP remains on lower side; discussed with CT UNIFORM ATTENDANT, pt asymptomatic, VS otherwise stable; assessment unchanged from prior
[2023-12-10 16:04] LABS: HDL Cholesterol 47 mg/dl; LDL Cholesterol, Calculated 91 mg/dl; Total Cholesterol 153 mg/dl (50-199); Triglyceride 77 mg/dl (10-149); Very Low Density Lipoprotein 15 mg/dl (0-30)
[2023-12-10] MEDS: VENTOLIN NEBULES 2.5 MG INH (17:03)
[2023-12-10] MEDS: LIPITOR 80 MG PO (17:42)
[2023-12-10] MEDS: NSS 500 IV (21:28)
--- NOTE | 2023-12-10 21:45 | PTCARENOTE ---
Assumed care of patient from dayshift RN. Walking rounds completed. Pt AAOx3. Pt SR on the tele monitor. HR 80s. BP 92/55. Palpable pulses throughout. No edema noted. Pt on 2 L NC. POX 91%. Lung sounds diminished at the base. Pt having dyspnea on
exertion. Deep breathing and IS encouraged. Left pleural CT to bulb. No airleak noted and output WNL. Abdomen soft/nontender. +BS. Pt voiding in bathroom w/o issue. Sternal incision approximated w/ surgical adhesive and LEIGHA. CT dressing
clean/dry/intact. Right IJ cordis clean/dry/intact w/ KVO infusing. L hand PIV removed due to pt reporting burning sensation when flushed. Left AC PIV clean/dry/intact. Pt states pain is controlled at this time. Call garza within reach.
[2023-12-11] VITALS (12 sets, daily range): BP systolic 90–137; BP diastolic 51–64; PULSE 71; O2SAT 81–92; BMI 28.4
--- NOTE | 2023-12-11 00:15 | PTCARENOTE ---
No acute changes in assessment. Pt remains SR on the tele monitor. HR 70s. BP stable. Pt on 2 L NC. POX 90-92%. Left pleural CT to bulb intact. Pt repositioned in bed. No c/o pain at this time. Call garza within reach.
[2023-12-11] MEDS: TORADOL 15 MG IV (03:19)
[2023-12-11 03:32] LABS: Hemoglobin 11.4 g/dL (12.0-16.0); Mean Corp Hgb Conc. 34.5 g/dL (33.0-37.0); Mean Corpuscular Hgb 28.6 pg (27.0-31.0); Mean Corpuscular Volume 82.7 fL (81.0-99.0); Mean Platelet Volume 9.1 fL (7.4-10.4); Platelet Count 304 10^3/uL (130-400); Red Blood Cell Count 3.99 10^6/uL (4.20-5.40); Red Cell Dist. Width 14.5 % (11.5-14.5); White Blood Cell Count 12.2 10^3/uL (4.8-10.8)
--- NOTE | 2023-12-11 03:39 | PTCARENOTE ---
No acute changes in assessment. Pt SR on the monitor. HR 70s. BP stable. Pt maintained on [address] to bulb intact and output WNL. Sternal incision intact. Pt assisted OOB to void then repositioned back into bed. Labs drawn and sent.
See MAR for pain medication administration. Call garza within reach.
[2023-12-11 03:56] LABS: Blood Urea Nitrogen 16 mg/dl (7-17); Calcium 8.8 mg/dl (8.4-10.2); Carbon Dioxide 23 mmol/L (22-30); Chloride 103 mmol/L (98-107); Estimated Creatinine Clearance 64 ml/min; Glucose 115 mg/dl (70-99); Magnesium 1.9 mg/dl (1.6-2.3); Potassium 4.7 mmol/L (3.5-5.1); Sodium 133 mmol/L (135-145); eGFR > 60.00
--- NOTE | 2023-12-11 05:06 | W.PN.CT ---
Today's Communication / Plan
-
-pod #2
-no issues overnight
-CT output: L pleur 70/100 in 12/24 hrs
-BP improving, tolerating low dose BB
-continue current meds
-encourage IS, OOB, ambulate
Assessment / Plan
-
- NSTEMI/90% ostial LAD - s/p off pump CABG x1 (Rizzo-Lad) by Dr. Ren on 12/09/23, pod #2
- Intraop Walt with preserved EF pre and post revasc
- HTN/HLD
- Lung CA - s/p KETURAH (2007) and RUL (2015) lobectomy with chemo, no XRT
- Former tobacco, quit 2006
- Prior EtOH use, in recovery
- Anxiety
- Migraines
- Acute postop blood loss anemia - stable, no transfusion
- Acute postop atelectasis
- Acute postop hypovolemia
- Suspected acute postop pericarditis/+rub
Discussed patient care with: Nursing and Care Team
Subjective
Procedure
- s/p off pump CABG x1 (Rizzo-Lad) by Dr. Ren on 12/09/23
-
Date of Service: December 11, 2023
Objective Data
-
Lab Results
12/11/23 03:15
12/11/23 03:15
PT 15.6 Sec (11.4-14.6) H 12/09/23 09:51
INR 1.26 12/09/23 09:51
APTT 55.4 Sec (23.4-35.0) H 12/09/23 02:41
Vital Signs
Vital Signs
Temp Pulse Resp BP Pulse Ox
98.5 F 75 20 103/62 92
12/11/23 03:10 08/01/24 03:10 12/11/23 03:10 12/11/23 03:10 12/11/23 03:10
CT Intake/Output/Weight
12/10/23 12/10/23 12/11/23
06:59 18:59 06:59
Intake Total 232.9 / 940.5 1180.9 / 1260.9 80 / 1260.9
Output Total 500 / 1180 580 / 1550 970 / 1550
Balance -267.1 / -239.5 600.9 / -289.1 -890 / -289.1
SaO2: 92
Physical Exam
-
General: Awake and AOx3
Cardiovascular: Regular rate & rhythm, No Murmurs and Rub
Respiratory: Decreased Breath Sounds
Sternum: Stable
Incision: Clean, Dry and Intact
Extremities: No Edema
Data Reviewed
-
Lab Results: Results Reviewed
Medications: Active Meds Reviewed
Chest X-Ray: Report Reviewed and Image Reviewed
ECG: Report Reviewed and Image Reviewed
[2023-12-11] MEDS: BACTROBAN 2% OINTMENT 1 APPLIC NASAL ×2 (08:44→20:03)
[2023-12-11] MEDS: LIDOCAINE 4% PATCH 1 PATCH TOPICAL (08:44)
[2023-12-11] MEDS: LOW STRENGTH ASPIRIN 81 MG PO (08:45)
[2023-12-11] MEDS: TOPROL XL 12.5 MG PO (08:46)
[2023-12-11] MEDS: MAGNESIUM OXIDE 500 MG PO ×2 (08:46→20:03)
[2023-12-11] MEDS: SENOKOT-S 1 TABLET PO (08:47)
[2023-12-11] MEDS: PROTONIX 40 MG PO (08:47)
[2023-12-11] MEDS: NEURONTIN 100 MG PO ×3 (08:47→20:03)
[2023-12-11] MEDS: PLAVIX 75 MG PO (08:47)
[2023-12-11] MEDS: PROZAC 40 MG PO (08:48)
--- NOTE | 2023-12-11 08:55 | PTCARENOTE ---
Received pt from [facility]; pt is AAOx4, NSR, SBP 90's, HR -72, R - 16, pt attempted on RA POX 83-88%, PERIOPERATIVE ASSISTANT aware, placed on 1L NC, POX improved to 93%. + BS, denies N/V, tolerating diet, voids in bathroom, Right IJ cordis maintained, PIV X1, Pt
states pain controlled. Discussed goals for day with pt. Pt resting in chair, call garza within reach.
--- NOTE | 2023-12-11 11:26 | CM ---
Reviewed chart. Met with Mrs Brooks to review discharge plans. She states she is feeling well just tired. She states she ambulated today x 2 . She ambulated 50 feet with rest breaks. We reviewed a home visit by the Cardiothoracic Transitional
Care Nurse. She is agreeable to a home visit. Prior to admission she resides with her 29 year old daughter in a three story home with two steps to enter. Her daughter does work outside the home. She has a full flight of steps to get to
bedroom/full bathroom. She has a powder room on the first floor. Prior to admission she was independent with ambulation and adls. She does not have any DME in the home. Medical work-up in progress. The discharge plan is to return home with her
daughter and a home visit by the Cardiothoracic Transitional Care Nurse when medically stable.
--- NOTE | 2023-12-11 12:00 | PTCARENOTE ---
VSS, no changes in assessment, ambulating in hallway. pt remains on 1L NC. OOB in chair for lunch.
[2023-12-11] MEDS: SENOKOT-S PO (12:17)
--- NOTE | 2023-12-11 13:42 | PTCARENOTE ---
CLINICAL EDITOR aware of chest tube output. Per CLINICAL EDITOR okay to d/c chest tube. Chest tube d/c'ed per order, dressing C/D/I. Pt resting between care.
--- NOTE | 2023-12-11 15:30 | W.PN.CARDCBS ---
Addendum entered and electronically signed by Houston Chaney DO 12/11/23 16:14:
I saw and examined the patient.
The Consumer Affairs Specialist's note was reviewed and I agree with the note.
Comment:
Plan:
Cont post op care
Remains sinus
Cont DAPT with ASA and Plavix.
Cont statin and Toprol
Discussed with nursing.
Original Note:
Today's Communication / Plan
-
follow BPs
in SR
continue asa, plavix, statin, low dose toprol
Impression / Plan
-
PCP: unknown
Cardiology: cath by ATC at [facility]
IMPRESSION:
-NSTEMI with ostial LAD stenosis by cath at [facility] 12/08/23 : s/p off pump CABG ANGEL-LAD 12/10/23
-Transferred from [facility] to for CT surgery evaluation 12/08/23
-HTN
-h/o lung cancer
initially diagnosed as a left sided lung mass treated with resection at [facility] 2007
recurrent lung cancer, primary lesion and not thought to be a metastatic lesion, treated with resection at [facility] 2015
-Former smoker
-Former ETOH use disorder
Echo 12/08/23: LV: Normal size and function with an estimated ejection fraction 55-60%. The basal and mid inferior septum and basal and mid inferior boyle are hypokinetic. Remaining wall segments are normal. RV: Normal, RA: Normal, MV: Trace MR,
AV: Mildly thickened and sclerotic. TV: No TR.
PLAN:
-doing well
-post op EKGs with evidence of pericarditis however reports adequately controlled pain. continue toradol, noted previous allergies to acetaminophen and Dilaudid
-continue asa, plavix. of note, is also on chronic prozac.
-hgb stable at 11.4
-LDL 91. continue high intensity statin therapy
-continue low dose toprol. follow BPs, which have been marginal.
-continue post op care
-d/w nursing
HPI: Patient came to from [facility] today with ACS and CAD, cardiology has been consulted. 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 She had chest pain and left hand tingling that resolved with rest. She did not try to complete that walk again and overall she had never had an episode like that before. She had an episode of chest pain walking up the stairs today and
was seen at [facility] and admitted with ACS. Patient had cardiac cath 12/08/23 that showed ostial LAD disease. She had chest pain that improved with NTG SL and Heparin gtt. She was transferred to for CABG evaluation. She has been pain free since arrival
to . Her mother had an VA at age 76, but suspects she had MIs prior to that as well. She is one of four children and two of her brother have CAD, one had CABG in his 50s and the other had PCI a few weeks ago and is in his 60s. She used to smoke
1.5 ppd, but quit in 2006. She also used to drink 3-5 drinks a day and quit cold turkey 17 months ago which she says caused her to gain weight and her cholesterol went up. She has a h/o HTN, but reports that her BP was elevated at PCP's office once
or twice so they started amlodipine. She does not monitor her BP at home.
Progress Note - Toe Former Stitchdowns
Subjective
Date of Service: December 11, 2023
reports pain adequately controlled. no SOB, lightheadedness
Objective
Labs:
12/11/23 03:15
12/11/23 03:15
Labs
Hgb 11.4 g/dL (12.0-16.0) L 12/11/23 03:15
Hct 33.0 % (37.0-47.0) L 12/11/23 03:15
Plt Count 304 10^3/uL (130-400) 12/11/23 03:15
PT 15.6 Sec (11.4-14.6) H 12/09/23 09:51
INR 1.26 12/09/23 09:51
APTT 55.4 Sec (23.4-35.0) H 12/09/23 02:41
Sodium 133 mmol/L (135-145) L 12/11/23 03:15
Potassium 4.7 mmol/L (3.5-5.1) 12/11/23 03:15
BUN 16 mg/dl (7-17) 12/11/23 03:15
Creatinine 0.8 mg/dL (0.6-1.0) 12/11/23 03:15
Glucose 115 mg/dl (70-99) H 12/11/23 03:15
Vital Signs and I&O:
Vital Signs
Temp Pulse Resp BP Pulse Ox
98.8 F 79 16 97/51 93
12/11/23 11:32 12/11/23 13:30 12/11/23 11:32 12/11/23 11:34 12/11/23 11:32
Vital Signs
Temp Pulse Resp BP Pulse Ox
98.8 F 79 16 97/51 93
12/11/23 11:32 12/11/23 13:30 12/11/23 11:32 12/11/23 11:34 12/11/23 11:32
Intake & Output
12/09/23 12/10/23 12/11/23 12/12/23
07:59 07:59 07:59 07:59
Intake Total 81.5 / 81.5 940.5 / 1190.8 1280.6 / 1290.6 40 / 40
Output Total 250 / 250 1180 / 1195 1850 / 1890 260 / 260
Balance -168.5 / -168.5 -239.5 / -4.2 -569.4 / -599.4 -220 / -220
Physical Exam
Physical Exam
GEN: No distress, awake, alert, oriented x3. on supp O2
HEENT: supple, anicteric, mmm, eomi
LUNGS: CTA B/L, no wheezes/rales
CV: Reg, S1/S2, +rub
EXT: No cyanosis, clubbing, edema
NEURO: Gross non-focal
SKIN: Warm, pink, dry. No rash. Sternotomy dressing c/d/i
[2023-12-11] MEDS: FLEXERIL 5 MG PO (15:47)
--- NOTE | 2023-12-11 16:13 | PTCARENOTE ---
VSS, no changes in assessment. pt ambulated to bathroom to void. OOB to chair for dinner. PT complained of incisional sternal pain, received PRN Flexeril.
[2023-12-11] MEDS: LIPITOR 80 MG PO (17:42)
--- NOTE | 2023-12-11 20:00 | PTCARENOTE ---
assumed care of pt from previous RN. pt A&Ox4, resting in bed at time of assessment. SR on tele-monitor. POX 96% on 1L NC. abd s/n, +BS. pt confirms +BMs. voiding clear, yellow urine in bathroom. sternal incision all surgical sites stable, CDI. R
IJ cordis w/ KVO. PIV intact. see worklist for complete nursing assessment, interventions, VS, and I&Os.
[2023-12-12] VITALS (11 sets, daily range): BP systolic 94–117; BP diastolic 55–69; PULSE 75; O2SAT 94; BMI 27.6
--- NOTE | 2023-12-12 04:00 | PTCARENOTE ---
assessment remains unchanged. VSS. POX 93% on 1 L NC. AM labs collected and sent.
[2023-12-12 04:31] LABS: Hematocrit 31.2 % (37.0-47.0); Hemoglobin 10.4 g/dL (12.0-16.0); Mean Corp Hgb Conc. 33.3 g/dL (33.0-37.0); Mean Corpuscular Hgb 28.8 pg (27.0-31.0); Mean Corpuscular Volume 86.4 fL (81.0-99.0); Mean Platelet Volume 9.3 fL (7.4-10.4); Platelet Count 253 10^3/uL (130-400); Red Blood Cell Count 3.61 10^6/uL (4.20-5.40); Red Cell Dist. Width 14.6 % (11.5-14.5); White Blood Cell Count 8.8 10^3/uL (4.8-10.8)
[2023-12-12 04:56] LABS: Blood Urea Nitrogen 14 mg/dl (7-17); Calcium 8.7 mg/dl (8.4-10.2); Carbon Dioxide 29 mmol/L (22-30); Chloride 107 mmol/L (98-107); Estimated Creatinine Clearance 74 ml/min; Glucose 111 mg/dl (70-99); Magnesium 1.8 mg/dl (1.6-2.3); Potassium 4.7 mmol/L (3.5-5.1); Sodium 136 mmol/L (135-145); eGFR > 60.00
--- NOTE | 2023-12-12 06:02 | W.PN.CT ---
Today's Communication / Plan
-
-pod #3
-no issues overnight
-BP improving, tolerating low dose BB
-continue current meds
-encourage IS, OOB, ambulate
Assessment / Plan
-
- NSTEMI/90% ostial LAD - s/p off pump CABG x1 (Rizzo-Lad) by Dr. Ren on 12/09/23, pod #3
- Intraop Walt with preserved EF pre and post revasc
- HTN/HLD
- Lung CA - s/p KETURAH (2007) and RUL (2015) lobectomy with chemo, no XRT
- Former tobacco, quit 2006
- Prior EtOH use, in recovery
- Anxiety
- Migraines
- Acute postop blood loss anemia - stable, no transfusion
- Acute postop atelectasis
- Acute postop hypovolemia
- Suspected acute postop pericarditis/+rub
Discussed patient care with: Nursing and Care Team
Subjective
Procedure
- s/p off pump CABG x1 (Rizzo-Lad) by Dr. Ren on 12/09/23
-
Date of Service: December 12, 2023
Objective Data
-
PT 15.6 Sec (11.4-14.6) H 12/09/23 09:51
INR 1.26 12/09/23 09:51
APTT 55.4 Sec (23.4-35.0) H 12/09/23 02:41
Vital Signs
Vital Signs
Temp Pulse Resp BP Pulse Ox
98.6 F 78 16 110/60 91
12/12/23 00:00 12/12/23 00:30 12/12/23 00:00 12/11/23 23:49 12/12/23 00:00
CT Intake/Output/Weight
12/11/23 12/11/23 12/12/23
06:59 18:59 06:59
Intake Total 110 / 1290.9 50 / 370 320 / 370
Output Total 1290 / 1870 260 / 260
Balance -1180 / -579.1 -210 / 110 320 / 110
SaO2: 91
Physical Exam
-
General: Awake and AOx3
Cardiovascular: Regular rate & rhythm, No Murmurs and Rub
Respiratory: Decreased Breath Sounds
Sternum: Stable
Incision: Clean, Dry and Intact
Extremities: No Edema
Data Reviewed
-
Lab Results: Results Reviewed
Medications: Active Meds Reviewed
Chest X-Ray: Report Reviewed and Image Reviewed
ECG: Report Reviewed and Image Reviewed
--- NOTE | 2023-12-12 07:33 | W.PN.CARDCBS ---
Addendum entered and electronically signed by Kenji Guzman MD 12/12/23 10:44:
I saw and examined the patient.
The Health Careers Instructor's note was reviewed and I agree with the note.
Comment:
GEN: No distress, awake, Ox3
HEENT: supple, anicteric, mmm
LUNGS: CTA, no wheezes/rales
CV: Reg, S1/S2, no rub
ABD: soft, BS+, NT/ND
EXT: No edema
NEURO: Gross non-focal
SKIN: sternotomy
PLan:
Continue postoperative care. Had very brief atrial arrhythmia overnight. Would add amiodarone. Continue Toprol, aspirin, Plavix for now.
Continue to follow on telemetry.
Wean oxygen. Hemoglobin at 10.4
Original Note:
Today's Communication / Plan
-
continue post op care
follow on tele with brief AF/AT overnight. consider addition of amiodarone
Impression / Plan
-
PCP: unknown
Cardiology: Dr. Hebert of [facility]
IMPRESSION:
-NSTEMI with ostial LAD stenosis by cath at [facility] 12/08/23 : s/p off pump CABG ANGEL-LAD 12/10/23
-Transferred from [facility] to for CT surgery evaluation 12/08/23
-HTN
-h/o lung cancer
initially diagnosed as a left sided lung mass treated with resection at [facility] 2007
recurrent lung cancer, primary lesion and not thought to be a metastatic lesion, treated with resection at [facility] 2015
-Former smoker
-Former ETOH use disorder
Echo 12/08/23: LV: Normal size and function with an estimated ejection fraction 55-60%. The basal and mid inferior septum and basal and mid inferior boyle are hypokinetic. Remaining wall segments are normal. RV: Normal, RA: Normal, MV: Trace MR,
AV: Mildly thickened and sclerotic. TV: No TR.
PLAN:
-with several brief runs of PAF vs PAT on review of telemetry overnight. her toprol dose was increased as of this morning, BPs stable. not presently on amiodarone, would consider addition
-continue asa, plavix. of note, is also on chronic prozac.
-hgb 10.4
-post op EKG 12/09 with evidence of pericarditis however reports adequately controlled pain. continue tramadol/toradol PRN, noted previous allergies to acetaminophen and Dilaudid
-LDL 91. continue high intensity statin therapy
-continue post op care
-OOB/IS encouraged
-OP follow up with ATC
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
HPI: Patient came to from [facility] today with ACS and CAD, cardiology has been consulted. 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 She had chest pain and left hand tingling that resolved with rest. She did not try to complete that walk again and overall she had never had an episode like that before. She had an episode of chest pain walking up the stairs today and
was seen at [facility] and admitted with ACS. Patient had cardiac cath 12/08/23 that showed ostial LAD disease. She had chest pain that improved with NTG SL and Heparin gtt. She was transferred to for CABG evaluation. She has been pain free since arrival
to . Her mother had an NH at age 76, but suspects she had MIs prior to that as well. She is one of four children and two of her brother have CAD, one had CABG in his 50s and the other had PCI a few weeks ago and is in his 60s. She used to smoke
1.5 ppd, but quit in 2006. She also used to drink 3-5 drinks a day and quit cold turkey 17 months ago which she says caused her to gain weight and her cholesterol went up. She has a h/o HTN, but reports that her BP was elevated at PCP's office once
or twice so they started amlodipine. She does not monitor her BP at home.
Progress Note - Business Objects Developer
Subjective
Date of Service: December 12, 2023
didn't sleep great. no issues with pain overnight
Objective
Labs:
12/12/23 04:20
12/12/23 04:20
Labs
Hgb 10.4 g/dL (12.0-16.0) L 12/12/23 04:20
Hct 31.2 % (37.0-47.0) L 12/12/23 04:20
Plt Count 253 10^3/uL (130-400) 12/12/23 04:20
PT 15.6 Sec (11.4-14.6) H 12/09/23 09:51
INR 1.26 12/09/23 09:51
APTT 55.4 Sec (23.4-35.0) H 12/09/23 02:41
Sodium 136 mmol/L (135-145) 12/12/23 04:20
Potassium 4.7 mmol/L (3.5-5.1) 12/12/23 04:20
BUN 14 mg/dl (7-17) 12/12/23 04:20
Creatinine 0.7 mg/dL (0.6-1.0) 12/12/23 04:20
Glucose 111 mg/dl (70-99) H 12/12/23 04:20
Vital Signs and I&O:
Vital Signs
Temp Pulse Resp BP Pulse Ox
98.5 F 74 16 117/66 93
12/12/23 04:00 12/12/23 04:30 12/12/23 04:00 12/12/23 04:18 12/12/23 04:00
Vital Signs
Temp Pulse Resp BP Pulse Ox
98.5 F 74 16 117/66 93
12/12/23 04:00 12/12/23 04:30 12/12/23 04:00 12/12/23 04:18 12/12/23 04:00
Intake & Output
12/09/23 12/10/23 12/11/23 12/12/23
07:59 07:59 07:59 07:59
Intake Total 81.5 / 81.5 940.5 / 1190.8 1280.6 / 1290.6 410 / 410
Output Total 250 / 250 1180 / 1195 1850 / 1890 260 / 260
Balance -168.5 / -168.5 -239.5 / -4.2 -569.4 / -599.4 150 / 150
Physical Exam
Physical Exam
GEN: No distress, awake, alert, oriented x3. sitting in chair
HEENT: supple, anicteric, mmm, eomi
LUNGS: CTA B/L, no wheezes/rales
CV: Reg, S1/S2
EXT: No cyanosis, clubbing, edema
NEURO: Gross non-focal
SKIN: Warm, pink, dry. No rash. Sternotomy dressing c/d/i
[2023-12-12] MEDS: BACTROBAN 2% OINTMENT 1 APPLIC NASAL ×2 (07:42→19:52)
[2023-12-12] MEDS: LIDOCAINE 4% PATCH TOPICAL (07:43)
[2023-12-12] MEDS: PROTONIX 40 MG PO (07:43)
[2023-12-12] MEDS: LOW STRENGTH ASPIRIN 81 MG PO (07:43)
[2023-12-12] MEDS: MAGNESIUM OXIDE 500 MG PO ×2 (07:43→19:52)
[2023-12-12] MEDS: PLAVIX 75 MG PO (07:44)
[2023-12-12] MEDS: NEURONTIN 100 MG PO ×3 (07:44→19:52)
[2023-12-12] MEDS: PROZAC 40 MG PO (07:45)
[2023-12-12] MEDS: SENOKOT-S PO ×2 (07:45→19:53)
[2023-12-12] MEDS: TOPROL XL 25 MG PO (07:45)
--- NOTE | 2023-12-12 07:52 | PTCARENOTE ---
Received pt from [facility]: Pt is AAO X3, NSR, T-98.7, P-74, R-16, B/P 111/63, P/O - 91% RA, + pulses, - edema. Resp clear on auscultation, L lung diminished, + bowel sounds, abdomen soft, non-tender to touch, Pt voiding in bathroom, Sternal
incision approx; L PIV checked, Cordis C/D. Reviewed plan of day with pt. Pt is resting OOB in chair.
--- NOTE | 2023-12-12 09:26 | CM ---
Reviewed chart. met with Ms. Brooks to review discharge plans. She states she is feeling well and maybe able to go home soon. We reviewed a home visit by the Cardiothoracic Transitional Care Nurse. She is agreeable to a home visit. Prior to
admission she resides with her daughter in a three story home with two steps to enter. She has to go up a full flight of steps to get to bedroom/full bathroom. She has a powder room on the first floor. Her daughter works outside the home. Prior to
admission she was independent with ambulation and adls. She does not have any DME in the home. Medical work-up in progress. The discharge plan is to return home with her daughter and a home visit by the Cardiothoracic Transitional Care Nurse when
medically stable.
--- NOTE | 2023-12-12 10:00 | PTCARENOTE ---
Seamus d/c'ed. pt tolerated procedure: VSS, nursing assessment unchanged from prior. pt resting in bed.
[2023-12-12] MEDS: PACERONE 200 MG PO ×2 (10:02→19:52)
[2023-12-12] MEDS: LASIX 20 MG IV (10:02)
[2023-12-12] MEDS: KLOR-CON 20 MEQ PO (10:02)
[2023-12-12] MEDS: NSS IV (10:04)
--- NOTE | 2023-12-12 12:40 | PTCARENOTE ---
VSS, assessment unchanged. Pt resting OOB in chair.
[2023-12-12] MEDS: LIDOCAINE 4% PATCH 1 PATCH TOPICAL (15:57)
--- NOTE | 2023-12-12 16:04 | PTCARENOTE ---
VSS, pt c/o lower back pain 08/19, requested lidocaine patch to lower back. ambulating in hallway ad iqra. Assessment unchanged from prior.
[2023-12-12] MEDS: LIPITOR 80 MG PO (18:00)
--- NOTE | 2023-12-12 20:00 | PTCARENOTE ---
assumed care of pt from previous RN. pt A&Ox4, resting in chair at time of assessment. SR on tele-monitor. palpable peripheral pulses. no edema noted. POX 92% on RA. abd s/n, +BS. pt reporting loose to semi-formed BMs. voiding clear, yellow urine.
sternal incision approximated w/ surgi-glue, LEIGHA. PIV intact. pt independent w/ ambulation. see worklist for complete nursing assessment, interventions, VS, and I&Os.
[2023-12-12] MEDS: TORADOL 15 MG IV (21:30)
--- NOTE | 2023-12-13 | PTCARENOTE ---
assessment remains unchanged. SR on tele-monitor. POX 87-88% on RA. pt placed on 1 L NC, POX 94-96%.
[2023-12-13 05:02] VITALS: BP 134/63
[2023-12-13 05:17] LABS: Hematocrit 31.9 % (37.0-47.0); Hemoglobin 10.9 g/dL (12.0-16.0); Mean Corp Hgb Conc. 34.2 g/dL (33.0-37.0); Mean Corpuscular Hgb 29.6 pg (27.0-31.0); Mean Corpuscular Volume 86.7 fL (81.0-99.0); Mean Platelet Volume 9.4 fL (7.4-10.4); Platelet Count 281 10^3/uL (130-400); Red Blood Cell Count 3.68 10^6/uL (4.20-5.40); Red Cell Dist. Width 14.4 % (11.5-14.5); White Blood Cell Count 7.7 10^3/uL (4.8-10.8)
[2023-12-13 06:00] VITALS: BMI 27.4
[2023-12-13 06:03] LABS: Blood Urea Nitrogen 22 mg/dl (7-17); Calcium 9.1 mg/dl (8.4-10.2); Carbon Dioxide 27 mmol/L (22-30); Chloride 105 mmol/L (98-107); Estimated Creatinine Clearance 64 ml/min; Glucose 110 mg/dl (70-99); Magnesium 1.9 mg/dl (1.6-2.3); Potassium 4.7 mmol/L (3.5-5.1); Sodium 135 mmol/L (135-145); eGFR > 60.00
--- NOTE | 2023-12-13 06:11 | W.PN.CT ---
Today's Communication / Plan
-
Status post CABG: Aspirin, high intensity statin, beta-ernst.
Briefly on oxygen overnight now on room air. She is ambulating independently and does not complain of shortness of breath.
2 view chest x-ray today
Belly soft
Out of bed, ambulate, cardiac rehab
Discharge today
Assessment / Plan
-
- NSTEMI/90% ostial LAD - s/p off pump CABG x1 (Rizzo-Lad) by Dr. Ren on 12/09/23, pod #3
- Intraop Walt with preserved EF pre and post revasc
- HTN/HLD
- Lung CA - s/p KETURAH (2007) and RUL (2015) lobectomy with chemo, no XRT
- Former tobacco, quit 2006
- Prior EtOH use, in recovery
- Anxiety
- Migraines
- Acute postop blood loss anemia - stable, no transfusion
- Acute postop atelectasis
- Acute postop hypovolemia
- Suspected acute postop pericarditis/+rub
Subjective
Procedure
- s/p off pump CABG x1 (Rizzo-Lad) by Dr. Ren on 12/09/23
Feels ok. Placed back on oxygen briefly overnight now off. Ambulating in her room.
-
Date of Service: December 13, 2023
Objective Data
-
Lab Results
12/13/23 05:02
12/13/23 05:02
PT 15.6 Sec (11.4-14.6) H 12/09/23 09:51
INR 1.26 12/09/23 09:51
APTT 55.4 Sec (23.4-35.0) H 12/09/23 02:41
Vital Signs
Vital Signs
Temp Pulse Resp BP Pulse Ox
98.6 F 63 14 134/63 96
12/13/23 00:00 12/13/23 05:02 12/13/23 05:00 12/13/23 05:02 12/13/23 05:00
CT Intake/Output/Weight
12/12/23 12/12/23 12/13/23
06:59 18:59 06:59
Intake Total 360 / 410 260 / 260
Output Total 1150 / 1150
Balance 360 / 150 -890 / -890
SaO2: 96
Physical Exam
-
General: AOx3
Cardiovascular: Regular rate & rhythm
Respiratory: Clear and Equal
Sternum: Stable
Incision: Clean, Dry and Intact
Extremities: No Edema
Data Reviewed
-
Lab Results: Results Reviewed
Medications: Active Meds Reviewed
Chest X-Ray: Image Reviewed
[2023-12-13 07:33] VITALS: BP 115/67
--- NOTE | 2023-12-13 08:00 | PTCARENOTE ---
Received pt from production shift supervisor RN; pt AAOx3 and resting comfortably in chair; NSR on monitor and VSS; PIV x1 patent; Lungs diminished and IS to 1000; positive bowel sounds; Pt voiding clear yellow urine; palpable pulses throughout; no edema noted; all
surgical sites C/D/I; see nursing documentation for further details.
[2023-12-13] MEDS: NEURONTIN 100 MG PO (08:03)
[2023-12-13] MEDS: LIDOCAINE 4% PATCH 1 PATCH TOPICAL (08:03)
[2023-12-13] MEDS: TOPROL XL 25 MG PO (08:03)
[2023-12-13] MEDS: PLAVIX 75 MG PO (08:04)
[2023-12-13] MEDS: LOW STRENGTH ASPIRIN 81 MG PO (08:04)
[2023-12-13] MEDS: PROTONIX 40 MG PO (08:04)
[2023-12-13] MEDS: PACERONE 200 MG PO (08:05)
[2023-12-13] MEDS: PROZAC 40 MG PO (08:05)
[2023-12-13] MEDS: SENOKOT-S PO (08:05)
[2023-12-13] MEDS: MAGNESIUM OXIDE 500 MG PO (08:05)
[2023-12-13] MEDS: BACTROBAN 2% OINTMENT 1 APPLIC NASAL (08:06)
[2023-12-13 09:10] VITALS: BP 111/69
[2023-12-13 09:17] VITALS: BP 116/61
[2023-12-13 09:54] VITALS: BP 111/69; BP 112/61; PULSE 66; O2SAT 75; O2SAT 95
--- NOTE | 2023-12-13 10:21 | W.DCSUMMARY ---
Discharge Summary
Discharge Data
Date of Admission: 12/08/23
Date of Discharge: 12/13/23
-
Pending Results: No
Hospital Course
Primary care physician: None
Outpatient marketing and development coordinator: Alejandro Ritter
Inpatient consultants: [facility]
Procedures:
1. 12/09/23 off pump coronary artery bypass grafting x1 (ANGEL-LAD) by Dr. Ren
Primary Diagnosis:
1. single vessel coronary artery disease
2. Non ST elevation myocardial infarction
Secondary Diagnoses:
1. Hypertension
2. Hyperlipidemia
3. History of non-small cell lung cancer status post left upper lobe resection in 2007, with recurrence and subsequent right lower lobe wedge resection at [facility] in 2015
4. Former tobacco abuse, quit in 2006
5. Anxiety
6. Migraines
7. History of alcohol abuse, in recovery
8. Acute postoperative blood loss anemia, stable with hemoglobin 10.9 at discharge
9. Self-limited postoperative atrial tachycardia on postoperative day 3, started on oral amiodarone without recurrence
HPI: Patient is a 63-year-old female who initially presented to [facility] with complaints of chest pain and T wave inversions on her EKG, she ruled in for non-STEMI and underwent left heart catheterization by Dr. Ritter. She was noted to
have ostial LAD disease not amenable to PCI, and was transferred to [facility] for CABG evaluation. Echo demonstrated normal LV function and no significant valve disease. after all preop workup was completed she was deemed a suitable
candidate to undergo the procedure.
Hospital course: She proceeded to the operating room on 12/09/2023 where she underwent an off-pump CABG x [address] with ANGEL to LAD [address] Maikol Ren without any perioperative complications. She was transferred to CVICU per protocol on Levophed at
4. She was extubated that day without incident, and soon weaned off the Levophed as well. She was given baby aspirin to continue antiplatelet therapy throughout her postoperative course. On postoperative day 1 she was weaned off of oxygen,
mediastinal chest tube was discontinued. She remains off vasoactive drips and she was started on beta-ernst and Plavix. On postoperative day 2 pleural chest tube was discontinued without incident she is converted to Toprol-XL she is ambulating
without difficulty satting 92% on room air. On postoperative day 3 beta-ernst was titrated up and she was started on oral amiodarone for a few brief runs of atrial fibrillation versus atrial tach that were self-limited and occurred overnight.
Cordis is discontinued and she continues to ambulate without difficulty. On postoperative day 4 she worked with cardiac rehab on the steps, two-view chest x-ray demonstrates small left effusion. She was discharged to home with close follow-up with
transitional care nurse from [facility] who will see her in a few days.
Home medication changes: She is instructed to stop taking amlodipine in favor of new prescription for Toprol-XL. New Rx provided for aspirin and Plavix for coronary disease and graft patency. Plavix should continue x 1 year if tolerated for her
ACS. New Rx for Lipitor for her CAD. Patient is instructed to take amiodarone 200 mg twice daily x 2 weeks then once daily until otherwise instructed by her marketing and development coordinator for her brief postoperative atrial fib/atrial tach.
Discharge Plan
-
Patient Disposition: Home (Routine Discharge)
Discharge Diagnosis/Procedures: NSTEMI, coronary artery disease
Condition: Good
Diet: Low Fat, Low Cholesterol and Low Sodium
Activity: No strenuous activity
Driving Restrictions: Not until seen by your Dr
Bathing Restrictions: OK to Shower
Other Services: Cardiac Rehab
Specialty Instructions: Weigh Daily- Call MD for wt gain/loss 3 lbs overnight/5 lbs in 1 week
Activity Restrictions/Additional Instructions:
ACTIVITY:
-No strenuous activity: no heavy lifting, pushing, pulling anything over 15 pounds for one month
-continue to use stairs as tolerated
DRIVING RESTRICTIONS:
-No driving for one month or until approved by your surgeon
WOUND CARE:
-Shower daily. Use soap & water.
-No lotions, creams or powders on incision area.
DIET:
-continue a low fat/low cholesterol diet.
-IF you are diabetic, continue carb controlled diet.
CARDIAC REHAB:
-Please make appointment to start in 5-6 weeks with your local hospital program. (See Cardiac Rehabilitation Discharge Booklet).
SPECIALTY INSTRUCTIONS:
-Weigh yourself daily. Call your physician for any weight gain/loss of 3 lbs overnight or 5 lbs in one week.
-REPORT any clicking noise or uneven appearance of your sternum to your surgeon immediately.
-If you smoke, you are instructed to quit. The [place] smoking hotline phone number is [phone]
Referrals:
CT Transitional Care Nurse [Outside] - in one to two days
(
The Cardiothoracic Transitional Care Nurse will call you to set up a visit in 1-2 days.)
Neo Fortune MD [Active] - in one to two months
Maikol Ren MD [Active] - 01/19/24 9:30 am
Harsha Hebert MD [Active] - 01/29/24 2:00 pm
UNKNOWN,NO INTERVIEW [Family Provider] -
Prescriptions:
New
clopidogrel 75 mg Tablet
75 mg PO DAILY Qty: 30 1RF
amiodarone 200 mg Tablet
200 mg PO BID Qty: 60 0RF
Rx Instructions:
take twice daily for 2 weeks (until 12/26) then once daily until otherwise instructed
atorvastatin 80 mg Tablet
80 mg PO QPM Qty: 30 1RF
lidocaine 4 % Adhesive Patch,Medicated
1 patch topical DAILY PRNQty: 0 0RF
sennosides-docusate sodium [Stool Softener-Laxative] 8.6-50 mg Tablet
1 tab PO Q12 PRN (Reason: Constipation) Qty: 0 0RF
aspirin 81 mg Tablet,Chewable
81 mg PO DAILY Qty: 30 1RF
metoprolol succinate 25 mg Tablet Extended Release 24 Hr
25 mg PO DAILY Qty: 30 1RF
gabapentin 100 mg Capsule
100 mg PO TID PRN (Reason: mild pain) Qty: 0 0RF
ibuprofen 200 mg tablet
200 mg PO Q6H PRN (Reason: mild pain) Qty: 30 0RF
Continued
fluoxetine [Prozac] 40 mg Capsule
40 mg PO DAILY
pantoprazole [Protonix] 40 mg Tablet,Delayed Release (Dr/Ec)
40 mg PO DAILY
zolpidem [Ambien CR] 6.25 mg Tablet,Ext Release Multiphase
6.25 mg PO HS PRN (Reason: insomnia)
Discontinued
amlodipine 2.5 mg Tablet
2.5 mg PO DAILY
Discharge Orders:
Discharge Patient (As Directed); Ordered 12/13/23
Ordered By: Marie Warner
Care Plan Goals
Care Plan Goals:
Problem: Readiness for enhanced knowledge related to diagnosis and treatment plan
Goal: Understand your diagnosis and treatment plan needs, including medications if applicable.
Instructions: Know your diagnosis, underlying causes and treatment plan options, including medications if applicable. Consult with your health care team to learn about your diagnosis and treatment plan, including medications if applicable.
Discharge Date and Time
Discharge Date/Time: 12/13/23 11:57
Print Language: HUNGARIAN
[2023-12-13 11:22] VITALS: BP 92/69
--- NOTE | 2023-12-13 11:28 | PTCARENOTE ---
Pt showered self and dressed self; residential monitor removed; discharge paperwork gone over with pt and family and all questions answered.
== END 2023-12-13 11:57 | disposition home or self-care (01) | DRG 236 ==
LOC: CVICU 15:21
PROVIDERS: Anesthesiology; Clinical Nurse Specialist Acute Care; Nurse Practitioner; Physician Assistant Medical; ADMITTING PHYSICIAN Thoracic Surgery (Cardiothoracic Vascular Surgery); CONSULT PHYSICIAN Internal Medicine Critical Care Medicine; CONSULT PHYSICIAN Internal Medicine Interventional Cardiology
PROC: B24BZZ4 Ultrasonography of Heart with Aorta, Transesophageal (ICD-10-PCS; 2023-12-09)
PROC: 02100Z9 Bypass Coronary Artery, One Artery from Left Internal Mammary, Open Approach (ICD-10-PCS; 2023-12-09)
DX: I21.4 Non-ST elevation (NSTEMI) myocardial infarction (principal); D62 Acute posthemorrhagic anemia; I47.19 Other supraventricular tachycardia; J98.11 Atelectasis; I30.9 Acute pericarditis, unspecified; I25.10 Atherosclerotic heart disease of native coronary artery without angina pectoris; I10 Essential (primary) hypertension; F10.21 Alcohol dependence, in remission; F41.9 Anxiety disorder, unspecified; K21.9 Gastro-esophageal reflux disease without esophagitis; E78.5 Hyperlipidemia, unspecified; E86.1 Hypovolemia; J43.2 Centrilobular emphysema; I48.91 Unspecified atrial fibrillation; Z79.899 Other long term (current) drug therapy; Z82.49 Family history of ischemic heart disease and other diseases of the circulatory system; Z85.118 Personal history of other malignant neoplasm of bronchus and lung; Z87.891 Personal history of nicotine dependence; Z90.2 Acquired absence of lung [part of]
CPT/HCPCS: 71045; 71046; 71250; 80048; 80051; 80053; 80061; 81003; 81015; 82330; 82565; 82805; 82947; 82962; 83036; 83735; 84100; 84132; 84302; 84520; 85014; 85018; 85025; 85027; 85049; 85610; 85730; 86850; 86900; 86901; 86920; 87086; 93005; 93312; 93320; 93325; 93880; 94002; 94010; 94640

== ENCOUNTER → 2023-12-31 10:43 | Outpatient (REF) | payer MEDICARE, SELFPAY | LOC: RAD 10:43 | PROVIDERS: ATTENDING PHYSICIAN Thoracic Surgery (Cardiothoracic Vascular Surgery); FAMILY PHYSICIAN Family Medicine | DX: R06.02 Shortness of breath (principal) | CPT/HCPCS: 71046 ==